=== PATIENT | male | born 1960 ===

== ENCOUNTER 2017-02-18 20:13 | Inpatient (IN) | payer MEDICAID, OTHER ==
[2017-02-18] MEDS ORDERED: Nitroglycerin 2% Ointment Foilpak UD TOP STA (22:05)
[2017-02-18 22:09] LABS: BASO # 0.1 K/uL (0.0-0.2); BASO % 0.7 % (0.0-2.0); EOS # 0.1 K/uL (0.0-0.7); EOS % 0.9 % (0.0-4.0); HEMOGLOBIN 16.8 g/dL (12.0-18.0); LYMPH # 1.4 K/uL (1.0-4.3); LYMPH % 11.1 % (20.0-40.0); MEAN CELL VOLUME 99.2 fl (80.0-94.0); MEAN CORPUSCULAR HEMOGLOBIN 33.2 pg (27.0-31.0); MEAN CORPUSCULAR HGB CONC 33.5 g/dL (33.0-37.0); MEAN PLATELET VOLUME 8.4 fl (7.2-11.7); MONO # 1.1 K/uL (0.0-0.8); MONO % 8.4 % (0.0-10.0); NEUT # 10.1 K/uL (1.8-7.0); NEUT % 78.9 % (50.0-75.0); NRBC % 0.6 % (0.0-0.0); RBC 5.05 Mil/uL (4.40-5.90); RED CELL DISTRIBUTION WIDTH 13.6 % (11.5-14.5); WHITE BLOOD COUNT 12.8 K/uL (4.8-10.8)
--- NOTE | 2017-02-18 22:09 | ED PDOC ---
HPI: General Adult Time Seen by Provider: 02/18/17 20:39 Chief Complaint (Nursing): Headache Chief Complaint (Provider): Chest pain, shortness of breath, and headache History Per: Patient History/Exam Limitations: no limitations Current Symptoms Are (Timing): Still Present Additional Complaint(s): 56 year old male with a past medical history of hypertension (noncompliance, states he only takes medications sometimes every other day) who presents to the emergency department with a complaint of a chest pain and shortness of breath x1 week. States he has been having increased shortness of breath especially when he is sleeping and having to get up multiple times during the night to catch his breath. Associated with bilateral leg swelling gradually over the last week with substernal chest pain that is pressure like and intermittently with a headache and productive cough with brownish sputum. Denies fever or focal weakness. PMD: Dr. Markham ([place], [place]) Past Medical History Reviewed: Historical Data, Nursing Documentation, Vital Signs Vital Signs: Last Vital Signs Temp 98.5 F 02/21/17 09:00 Pulse 85 02/21/17 09:00 Resp 18 02/21/17 09:00 BP 133/87 02/21/17 09:00 Pulse Ox 95 02/21/17 09:00 - Medical History PMH: HTN, Kidney Stones - Surgical History Surgical History: No Surg Hx - Family History Family History: States: CAD, Other Other Family History: cardiac disease father at 40 (massive heart attack) - Social History Current smoker - smoking cessation education provided: Yes (Half a pack a day) Alcohol: Occasional Drugs: Denies - Home Medications Home Medications: Ambulatory Orders Medication Instructions Recorded hydroCHLOROthiazide [Hydrodiuril] 25 mg PO DAILY #30 tab 07/28/15 - Allergies Allergies/Adverse Reactions: Allergies Allergy/AdvReac Type Severity Reaction Status Date / Time No Known Allergies Allergy Verified 02/18/17 20:17 Review of Systems ROS Statement: Except As Marked, All Systems Reviewed And Found Negative (As per HPI, otherwise negative) Constitutional: Negative for: Fever Cardiovascular: Positive for: Chest Pain (substernal) Respiratory: Positive for: Cough, Shortness of Breath, Sputum (brownish) Musculoskeletal: Positive for: Leg Pain (swelling bialterally) Neurological: Positive for: Headache. Negative for: Weakness (focal) Physical Exam - Reviewed Nursing Documentation Reviewed: Yes Vital Signs Reviewed: Yes - Physical Exam Appears: Positive for: Non-toxic, In Acute Distress Head Exam: Positive for: ATRAUMATIC, NORMOCEPHALIC Skin: Positive for: Warm, Dry Eye Exam: Positive for: EOMI, PERRL ENT: Negative for: Pharyngeal Erythema, Tonsillar Exudate Neck: Positive for: Painless ROM, Supple Cardiovascular/Chest: Positive for: Regular Rate, Rhythm, Edema. Negative for: Murmur Respiratory: Positive for: Normal Breath Sounds, Respiratory Distress. Negative for: Accessory Muscle Use Gastrointestinal/Abdominal: Positive for: Soft. Negative for: Tenderness Back: Positive for: Normal Inspection. Negative for: Decreased ROM Extremity: Positive for: Pedal Edema, Swelling. Negative for: Calf Tenderness Lymphatic: Negative for: Adenopathy Neurologic/Psych: Positive for: Alert. Negative for: Motor/Sensory Deficits - Laboratory Results Result Diagrams: 02/21/17 04:45 02/21/17 04:45 - ECG O2 Sat by Pulse Oximetry: 96 (RA) Pulse Ox Interpretation: Normal Medical Decision Making Medical Decision Making: Time: 2102 Initial impression: Shortness of breath and leg edema differential new onset congestive heart failure (CHF), acute coronary syndrome (ACS), fluid overload, renal failure, pneumonia Initial plan: --Labs and chemistry ordered --Chest x-ray --Rapid Strep --Reevaluation Time: 2204 --WBC: 12.8 (High) --ALT: 84 (High) --NT-Pro-B Natriuret Pep: 1490 (High) --Strep: Negative Time: 2207 --Chest x-ray read by me shows vascular congestion and no effusion Time: 2247 --Admit to hospital routine: on observation in telemetry for CHF and chest pain under the care of Dr. Leonel Carranza MD Scribe Attestation: Documented by Amber García, acting as a scribe for Krystal Allen MD. Provider Scribe Attestation: All medical record entries made by the Scribe were at my direction and personally dictated by me. I have reviewed the chart and agree that the record accurately reflects my personal performance of the history, physical exam, medical decision making, and the department course for this patient. I have also personally directed, reviewed, and agree with the discharge instructions and disposition. Disposition - Clinical Impression Clinical Impression: CHF (congestive heart failure), Chest pain Discussed With Dr.: Leonel Carranza Doctor Will See Patient In The: Hospital Counseled Patient/Family Regarding: Studies Performed, Diagnosis - Disposition Disposition Time: 21:00 Condition: FAIR - Pt Status Changed To: Hospital Disposition Of: Observation - POA Present On Arrival: None
[2017-02-18 22:19] LABS: ALB/GLOB RATIO 1.2 (1.0-2.1); ALBUMIN 3.9 g/dL (3.5-5.0); ALT/SGPT 81 U/L (21-72); AST/SGOT 36 U/L (17-59); BLOOD UREA NITROGEN 15 mg/dl (9-20); CALCIUM 9.6 mg/dL (8.4-10.2); GFR AFRICAN-AMERICAN > 60; GFR NON-AFRICAN AMERICAN > 60; MAGNESIUM 1.7 MG/DL (1.6-2.3)
[2017-02-18 22:30] LABS: B-TYPE NATRIURETIC PEPTIDE 1490 pg/ml (0-900)
[2017-02-18 22:32] LABS: INR 1.1 (0.9-1.2); PARTIAL THROMBOPLASTIN TIME 35.1 Seconds (25.6-37.1); PROTHROMBIN TIME 11.8 Seconds (9.8-13.1)
[2017-02-19] MEDS ORDERED: Potassium Chloride 20 mEq ER Tab PO ONE (09:09)
[2017-02-19] MEDS: Potassium Chloride 20 mEq ER Tab PO SCH (09:11)
--- NOTE | 2017-02-19 10:49 | RAD ---
HISTORY: chest pain sob COMPARISON: No prior. TECHNIQUE: Chest PA and lateral FINDINGS: LUNGS: Coarse interstitial lung markings blend with central pulmonary venous suspect congestion PLEURA: No significant pleural effusion identified. No pneumothorax apparent. CARDIOVASCULAR: Cardiomegaly OSSEOUS STRUCTURES: No significant abnormalities. VISUALIZED UPPER ABDOMEN: Normal. OTHER FINDINGS: None. IMPRESSION: Cardiomegaly with central pulmonary venous congestion Concomitant interstitial lung disease possible
--- NOTE | 2017-02-19 10:53 | CARD ---
APPROVED REPORT EKG Measurement Heart [id number] SC [id number] <Conclusion> Sinus tachycardia with premature supraventricular complexes Biatrial enlargement Abnormal ECG
--- NOTE | 2017-02-19 10:53 | CARD ---
APPROVED REPORT EKG Measurement Heart [id number] NC [id number] <Conclusion> Sinus tachycardia with premature atrial complexes Biatrial enlargement Abnormal ECG
--- NOTE | 2017-02-19 11:06 | US ---
PROCEDURE: Bilateral lower extremity venous duplex Doppler. HISTORY: CHF COMPARISON: None available. TECHNIQUE: Bilateral common femoral, superficial femoral, popliteal and posterior tibial veins were evaluated. Flow was assessed with color Doppler, compressibility, assessment of phasic flow and augmentation response. FINDINGS: COMMON FEMORAL VEIN: Right CFV: Normal direction of flow, compressibility and augmentation response. Left CFV: Normal direction of flow, compressibility and augmentation response. SUPERFICIAL FEMORAL VEIN: Right SFV: Normal direction of flow, compressibility and augmentation response. Left SFV: Normal direction of flow, compressibility and augmentation response. POPLITEAL VEIN: Right Popliteal: Normal direction of flow, compressibility and augmentation response. Left Popliteal: Normal direction of flow, compressibility and augmentation response. POSTERIOR TIBIAL VEIN: Right PTV:Normal direction of flow, compressibility and augmentation response. Left PTV: Normal direction of flow, compressibility and augmentation response. OTHER FINDINGS: None. IMPRESSION: No evidence of deep venous thrombosis.
--- NOTE | 2017-02-19 11:38 | CARD ---
APPROVED REPORT EXAM: Two-dimensional and M-mode echocardiogram with Doppler and color Doppler. Other Information Quality : FairRhythm : INDICATION Abnormal EKG/Arrhythmia Congestive Heart Failure 2D DIMENSIONS IVSd1.52 (0.7-1.1cm)LVDd6.22 (3.9-5.9cm) PWd1.21 (0.7-1.1cm)IVSs1.55 (0.8-1.2cm) LVDs5.27 (2.5-4.0cm)FS (%) 15.4 % PWs1.54 (0.8-1.2cm) M-Mode DIMENSIONS Left Atrium (MM)5.32 (2.5-4.0cm)IVSd1.48 (0.7-1.1cm) Aortic Root3.93 (2.2-3.7cm)LVDd6.71 (4.0-5.6cm) Aortic Cusp Exc.1.52 (1.5-2.0cm)PWd1.60 (0.7-1.1cm) IVSs1.14 cmFS (%) 9 % LVDs6.12 (2.0-3.8cm)PWs1.48 cm Mitral Valve MV E Hbmkxfnp26.7cm/sMV E Peak Gr.23mmHgMV DECEL [id number] MV A Yntsqjfg24.1cm/sMV UMQ57fyA/A ratio1.5 MVA (PHT)4.95cm2 TDI Lateral E' Peak V6.11cm/sE/Lateral E'8.6E/Medial E'0.0 Tricuspid Valve TR Peak Hobnfkjh230em/sRAP GAVXYNJC7dyTaFO Peak Gr.12mmHg [id number] LEFT VENTRICLE The Left Ventricle is moderately dilated on the 2D study. There is mild concentric left ventricular hypertrophy on the 2D study. Left ventricle systolic function is severely impaired. The Ejection Fraction is - 20-25%. The wall motion appears to vary somewhat from on view to another. But, there is generalized severe LV hypokinesia. Transmitral Doppler flow pattern is Grade II-pseudonormal filling dynamics. No left ventricle thrombus noted on this study. There is no ventricular septal defect visualized. There is no left ventricular aneurysm. There is no mass noted in the left ventricle. RIGHT VENTRICLE The right ventricle is normal size. There is normal right ventricular wall thickness. The right ventricular systolic function is normal. ATRIA The left atrium is mildly dilated. There is no thrombus suspected in the left atrium. The right atrium size is normal. The interatrial septum is intact with no evidence for an atrial septal defect. AORTIC VALVE The aortic valve is normal in structure. No aortic regurgitation is present. There is no aortic valvular stenosis. MITRAL VALVE The mitral valve is normal in structure. There is no evidence of mitral valve prolapse. There is no mitral valve stenosis. Mitral regurgitation is mild. TRICUSPID VALVE The tricuspid valve is normal in structure. There is trace tricuspid regurgitation. Right ventricular systolic pressure is estimated at 22 mmHg. There is no tricuspid valve prolapse or vegetation. There is no tricuspid valve stenosis. PULMONIC VALVE The pulmonic valve is not well visualized. There is no pulmonic valvular regurgitation. GREAT VESSELS The aortic root is normal in size. The IVC was not well visualized. PERICARDIAL EFFUSION The pericardium appears normal. There is no pleural effusion. <Conclusion> The Left Ventricle is moderately dilated on the 2D study. There is mild concentric left ventricular hypertrophy. Left ventricle systolic function is severely impaired. The Ejection Fraction is - 20-25%. The left atrium is mildly dilated. The mitral, aortic and tricuspid valves are normal. There is mild mitral regurgitation and trace tricuspid regurgitation.
--- NOTE | 2017-02-19 14:23 | CP.PCM.HP ---
<Adilene Berg - Last Filed: 02/19/17 14:57> History of Present Illness - History of Present Illness History of Present Illness: 56 yr old M presented to Ed with complaint of worsening SOB at rest, pressure like chest pain and bilateral lower extremity swelling for the past week. PMHx includes hypertension. Patient reports non-adherence to BP meds. He has been waking up SOB from his sleep and has not been able to sleep well for the past week, he has always slept propped up with 4 pillows, but has noticed he gets SOB after walking half a block on flat pavement when prior he could walk many blocks without getting SOB. This is the first time he experiences swelling of his legs. He has not seen his PMD in 2 yrs. 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 Medications: Hydrochlorothiazide 25mg PO QD Allergies: NKDA Present on Admission - Present on Admission Any Indicators Present on Admission: No History of DVT/PE: No History of Uncontrolled Diabetes: No Urinary Catheter: No History Surgical Site Infection Following: None Review of Systems - Review of Systems All systems: reviewed and no additional remarkable complaints except (for what is mentioned in the HPI) - Constitutional Constitutional: absent: Anorexia, Chills - EENT Eyes: absent: Blurred Vision, Change in Vision Ears: absent: Disequilibrium, Dizziness Nose/Mouth/Throat: absent: Nasal Congestion, Nasal Discharge - Cardiovascular Cardiovascular: Chest Pain, Dyspnea (at rest), Dyspnea on Exertion, Leg Edema ( bilateral), Orthopnea, Pedal Edema (bilateral). absent: Chest Pain with Activity, Rapid Heart Rate - Respiratory Respiratory: Dyspnea on Exertion, Chest Congestion (with brown sputum production x 1 month). absent: Hemoptysis - Gastrointestinal Gastrointestinal: absent: Diarrhea, Nausea, Vomiting - Genitourinary Genitourinary: absent: Difficulty Urinating, Dysuria - Musculoskeletal Musculoskeletal: absent: Arthralgias - Neurological Neurological: absent: Dizziness, Weakness - Psychiatric Psychiatric: absent: Anxiety, Homicidal Ideation, Suicidal Ideation - Endocrine Endocrine: absent: Polydipsia, Polyphagia, Polyuria - Hematologic/Lymphatic Hematologic: absent: Easy Bleeding, Easy Bruising Past Patient History - Past Social History Alcohol: Occasional Drugs: Denies - CARDIAC Hx Hypertension: Yes - RENAL Hx Kidney Stones: Yes - PSYCHIATRIC Hx Substance Use: No - SURGICAL HISTORY Hx Surgeries: Yes Other/Comment: lithotripsy x3 - ANESTHESIA Hx Anesthesia: Yes Hx Anesthesia Reactions: No Meds Allergies/Adverse Reactions: Allergies Allergy/AdvReac Type Severity Reaction Status Date / Time No Known Allergies Allergy Verified 02/18/17 20:17 Physical Exam - Constitutional Appears: Other (SOB, uncomfortable) - Head Exam Head Exam: ATRAUMATIC, NORMOCEPHALIC - Eye Exam Eye Exam: EOMI, PERRL - ENT Exam ENT Exam: Mucous Membranes Moist - Neck Exam Neck exam: Positive for: Full Rom. Negative for: Lymphadenopathy - Respiratory Exam Respiratory Exam: Decreased Breath Sounds (in bilateral lower lobes), NORMAL BREATHING PATTERN (on 2L supplemental O2 via nasal cannula) - Cardiovascular Exam Cardiovascular Exam: REGULAR RHYTHM, +S1, +S2 - GI/Abdominal Exam GI & Abdominal Exam: Normal Bowel Sounds, Soft (obese). absent: Tenderness - Extremities Exam Extremities exam: Positive for: full ROM, pedal edema (bilateral pitting edema , very dry plantar skin) - Neurological Exam Neurological exam: Alert, CN II-XII Intact, Oriented x3 - Psychiatric Exam Psychiatric exam: Normal Affect, Normal Mood - Skin Skin Exam: Dry, Intact, Normal Color, Warm Results - Vital Signs Recent Vital Signs: Last Vital Signs Temp 97.7 F 02/19/17 13:50 Pulse 78 02/19/17 13:50 Resp 18 02/19/17 13:50 BP 141/81 02/19/17 13:50 Pulse Ox 96 02/19/17 13:50 - Labs Result Diagrams: 02/18/17 22:05 02/18/17 22:05 Labs: Laboratory Results - last 24 hr 02/18/17 02/18/17 02/18/17 21:03 21:47 22:05 WBC RBC Hgb Hct MCV MCH MCHC RDW Plt Count MPV Neut % (Auto) Lymph % (Auto) [place] % (Auto) Eos % (Auto) Baso % (Auto) Neut # Lymph # [place] # Eos # Baso # PT INR APTT Sodium 138 Potassium 4.0 Chloride 102 Carbon Dioxide 28 Anion Gap 12 BUN 15 Creatinine 0.8 Est GFR ( Amer) > 60 Est GFR (Non-Af Amer) > 60 POC Glucose (mg/dL) 102 Random Glucose 97 Calcium 9.6 Phosphorus 2.9 Magnesium 1.7 Total Bilirubin 0.9 AST 36 ALT 81 H D Alkaline Phosphatase 125 Troponin I 0.0920 NT-Pro-B Natriuret Pep 1490 H Total Protein 7.1 Albumin 3.9 Globulin 3.2 Albumin/Globulin Ratio 1.2 TSH 3rd Generation 0.97 Grp A Beta Strep Ag Blood Type B NEGATIVE Antibody Screen Negative BBK History Checked No verified bt 02/18/17 02/18/17 02/18/17 22:05 22:05 22:05 WBC 12.8 H D RBC 5.05 Hgb 16.8 Hct 50.1 MCV 99.2 H MCH 33.2 H MCHC 33.5 RDW 13.6 Plt Count 225 MPV 8.4 Neut % (Auto) 78.9 H Lymph % (Auto) 11.1 L [place] % (Auto) 8.4 Eos % (Auto) 0.9 Baso % (Auto) 0.7 Neut # 10.1 H Lymph # 1.4 Freestone # 1.1 H Eos # 0.1 Baso # 0.1 PT 11.8 INR 1.1 APTT 35.1 Sodium Potassium Chloride Carbon Dioxide Anion Gap BUN Creatinine Est GFR ( Amer) Est GFR (Non-Af Amer) POC Glucose (mg/dL) Random Glucose Calcium Phosphorus Magnesium Total Bilirubin AST ALT Alkaline Phosphatase Troponin I NT-Pro-B Natriuret Pep Total Protein Albumin Globulin Albumin/Globulin Ratio TSH 3rd Generation Grp A Beta Strep Ag Negative Blood Type Antibody Screen BBK History Checked 02/19/17 02/19/17 06:15 13:07 WBC RBC Hgb Hct MCV MCH MCHC RDW Plt Count MPV Neut % (Auto) Lymph % (Auto) Freestone % (Auto) Eos % (Auto) Baso % (Auto) Neut # Lymph # Fre[place] # Eos # Baso # PT INR APTT Sodium Potassium Chloride Carbon Dioxide Anion Gap BUN Creatinine Est GFR ( Amer) Est GFR (Non-Af Amer) POC Glucose (mg/dL) Random Glucose Calcium Phosphorus Magnesium Total Bilirubin AST ALT Alkaline Phosphatase Troponin I 0.0910 0.0750 NT-Pro-B Natriuret Pep Total Protein Albumin Globulin Albumin/Globulin Ratio TSH 3rd Generation Grp A Beta Strep Ag Blood Type Antibody Screen BBK History Checked Assessment & Plan - Assessment and Plan (Free Text) Assessment: 56 yr old M admitted for new onset systolic CHF with uncontrolled HTN. Patient is SOB while on supplemental O2 via nasal cannula with bilateral lower extremity edema. 1. Acute Systolic CHF -new onset -Echo: severely impaired systolic function with LVEF 20-25%, severe LV hypokinesia -EKG: biatrial enlargement, sinus tachy -CXR: cardiomegaly with central pulmonary venous congestion, possible concomitant interstitial lung disease -b/l LE duplex: no evidence of DVT -cardiology consult appreciated-will follow recommendations: lasix 40mg IV BID, Ramipril 2.5mg PO BID -Admit to telemetry -daily weight, ins and outs 2. Hypertension -chronic, uncontrolled -Ramipril 2.5 mg PO QD -heart healthy diet 3. DVT prophylaxis -Lovenox 40mg SC QD - Date & Time Date: 02/19/17 Time: 12:00 <Leonel Carranza - Last Filed: 02/23/17 18:29> Results - Vital Signs Recent Vital Signs: Last Vital Signs Temp 98.5 F 02/23/17 16:04 Pulse 75 02/23/17 16:04 Resp 14 02/23/17 16:04 BP 102/67 02/23/17 16:04 Pulse Ox 96 02/23/17 16:04 - Labs Result Diagrams: 02/21/17 04:45 02/23/17 05:40 Labs: Laboratory Results - last 24 hr 02/23/17 05:40 Sodium 137 Potassium 5.0 Chloride 98 Carbon Dioxide 32 H Anion Gap 12 BUN 23 H Creatinine 1.2 Est GFR ( Amer) > 60 Est GFR (Non-Af Amer) > 60 Random Glucose 233 H Calcium 9.9 Magnesium 2.1 NT-Pro-B Natriuret Pep 327 Assessment & Plan - Assessment and Plan (Free Text) Plan: I was present during evaluation and discussed with Dr Berg re:plans of care and mgt Leonel Carranza M.D.
[2017-02-19] MEDS ORDERED: Pneumococcal 23-Valent Vaccine IM ONE (14:59)
[2017-02-19] MEDS: Enoxaparin 40 mg Syringe SC SCH (16:01)
[2017-02-19 17:57] VITALS: BMI 30.3
[2017-02-19 19:06] LABS: SQUAMOUS EPITHIAL < 1 /hpf (0-5); URINE BILIRUBIN NEGATIVE (NEGATIVE); URINE BLOOD NEGATIVE (NEGATIVE); URINE CLARITY CLEAR (Clear); URINE COLOR STRAW (YELLOW); URINE GLUCOSE (UA) NEG (Normal); URINE LEUKOCYTE ESTERASE NEG Leu/uL (Negative); URINE NITRATE NEGATIVE (NEGATIVE); URINE PROTEIN NEGATIVE (NEGATIVE); URINE UROBILINOGEN 0.2-1.0 mg/dL (0.2-1.0)
[2017-02-19 19:21] LABS: BARBITURATES, UR NEGATIVE (NEGATIVE); BENZODIAZEPINES, UR NEGATIVE (NEGATIVE); OPIATES, UR NEGATIVE (NEGATIVE); PHENCYCLIDINE, UR NEGATIVE (NEGATIVE)
--- NOTE | 2017-02-19 19:44 | CP.PCM.CON ---
History of Present Illness - History of Present Illness History of Present Illness: 56 Y/O ADMITTED WITH NEW ONSET CHF. PT STATES HE HAS BEEN EXPERIENCING DENSON, ORTHOPNEA, PND AND ALIA FOR SEVERAL WEEKS. THIS IS THE FIRST TIME HE HAS HAD SUCH SYMPTOMS. HE DENIES A HX OF HEART DISEASE, ETOH USE/ABUSE, ARRYTHMIAS, CP , SYNCOPE. Review of Systems - Constitutional Constitutional: As Per HPI. absent: Anorexia, Chills, Daytime Sleepiness, Excessive Sweating, Fatigue, Fever, Frequent Falls, Headache, Increased Appetite , Lethargy, Malaise, Night Sweats, Snoring, Sleep Apnea, Weight Gain, Weight Loss, Weakness, Other - EENT Eyes: As Per HPI. absent: Blind Spots, Blurred Vision, Change in Vision, Decreased Night Vision, Diplopia, Discharge, Dry Eye, Exophthalmos, Floaters, Irritation, Itchy Eyes, Loss of Peripheral Vision, Pain, Photophobia, Requires Corrective Lenses, Sees Flashes, Spots in Vision, Tunnel Vision, Other Visual Disturbances, Loss of Vision, Other Ears: As Per HPI. absent: Decreased Hearing, Ear Discharge, Ear Pain, Tinnitus , Abnormal Hearing, Disequilibrium, Dizziness, Other Nose/Mouth/Throat: As Per HPI. absent: Epistaxis, Nasal Congestion, Nasal Discharge, Nasal Obstruction, Nasal Trauma, Nose Pain, Post Nasal Drip, Sinus Pain, Sinus Pressure, Bleeding Gums, Change in Voice, Dental Pain, Dry Mouth, Dysphagia, Halitosis, Hoarsness, Lip Swelling, Mouth Lesions, Mouth Pain, Odynophagia, Sore Throat, Throat Swelling, Tongue Swelling, Facial Pain, Neck Pain, Neck Mass, Other - Cardiovascular Cardiovascular: As Per HPI, Dyspnea, Dyspnea on Exertion, Edema, Leg Edema, Paroxysmal Nocturnal Dyspnea. absent: Acrocyanosis, Chest Pain, Chest Pain at Rest, Chest Pain with Activity, Claudication, Diaphoresis, Irregular Heart Rhythm, Pain Radiating to Arm/Neck/Jaw, Leg Ulcers, Lightheadedness, Orthopnea, Palpitations, Pedal Edema, Radiating Pain, Rapid Heart Rate, Slow Heart Rate, Syncope, Other - Respiratory Respiratory: As Per HPI. absent: Cough, Dyspnea, Hemoptysis, Dyspnea on Exertion, Wheezing, Snoring, Stridor, Pain on Inspiration, Chest Congestion, Excessive Mucous Production, Change in Mucous Color, Pain with Coughing, Other - Gastrointestinal Gastrointestinal: As Per HPI. absent: Abdominal Pain, Belching, Bloating, Change in Bowel Habits, Change in Stool Character, Coffee Ground Emesis, Constipation, Cramping, Diarrhea, Dyspepsia, Dysphagia, Early Satiety, Excessive Flatus, Fecal Incontinence, Heartburn, Hematemesis, Hematochezia, Loose Stools, Melena, Nausea, Odynophagia, Temesmus, Vomiting, Other - Genitourinary Genitourinary: As Per HPI. absent: Change in Urinary Stream, Difficulty Urinating, Dysuria, Flank Pain, Hematuria, Pyuria, Nocturia, Urinary Incontinence, Urinary Frequency, Urinary Hesitance, Urinary Urgency, Voiding Freq/Small Amts, Freq UTI, Hx Renal/Bladder Calculi, Hx /Renal Surgery, Bladder Distension, Other - Reproductive: Male Reproductive:Male: As Per HPI - Musculoskeletal Musculoskeletal: As Per HPI. absent: Abnormal Gait, Arthralgias, Atrophy, Back Pain, Deformity, Joint Swelling, Limited Range of Motion, Loss of Height, Muscle Cramps, Muscle Weakness, Myalgias, Neck Pain, Numbness, Radiating Pain into Limb, Stiffness, Tingling, Other - Integumentary Integumentary: As Per HPI. absent: Acne, Alopecia, Bleeding Lesions, Change in Hair, Change in Nails, Change in Pigmentation, Changing Lesions, Dry Skin, Erythema, Furuncle, Hirsutism, Lesions, New Lesions, Non-Healing Lesions, Photosensitivity, Pruritus, Rash, Skin Pain, Skin Ulcer, Sores, Striae, Swelling , Unusual Bruising, Wounds, Jaundice, Other - Neurological Neurological: As Per HPI. absent: Abnormal Gait, Abnormal Hearing, Abnormal Movements, Abnormal Speech, Behavioral Changes, Burning Sensations, Confusion, Convulsions, Disequilibrium, Dizziness, Numbness, Focal Weakness, Frequent Falls , Headaches, Lack of Coordination, Loss of Vision, Memory Loss, Paresthesias, Radicular Pain, Restless Legs, Sensory Deficit, Syncope, Tingling, Tremor, Vertigo, Weakness, Other Visual Disturbances, Other - Psychiatric Psychiatric: As Per HPI. absent: Abnormal Sleep Pattern, Anhedonia, Anxiety, Auditory Hallucinations, Behavioral Changes, Change in Appetite, Change in Libido, Confusion, Depression, Difficulty Concentrating, Hallucinations, Homicidal Ideation, Hopelessness, Irritability, Memory Loss, Mood Swings, Panic Attacks, Paranoia, Suicidal Ideation, Visual Hallucinations, Tactile Hallucinations, Other - Endocrine Endocrine: As Per HPI. absent: Change in Body Appearance, Change in Libido, Cold Intolorance, Deepening of Voice, Excessive Sweating, Fatigue, Flushing, Heat Intolorance, Increase in Ring/Shoe/Hat Size, Palpitations, Polydipsia, Polyphagia, Polyuria, Other - Hematologic/Lymphatic Hematologic: As Per HPI. absent: Easy Bleeding, Easy Bruising, Lymphadenopathy , Other Past Patient History - Infectious Disease Hx of Infectious Diseases: None - Tetanus Immunizations Tetanus Immunization: Unknown - Past Medical History & Family History Past Medical History?: Yes - Past Social History Smoking Status: Former Smoker Alcohol: Occasional Drugs: Denies - CARDIAC Hx Hypertension: Yes - RENAL Hx Kidney Stones: Yes - MUSCULOSKELETAL/RHEUMATOLOGICAL Hx Falls: No - PSYCHIATRIC Hx Substance Use: No - SURGICAL HISTORY Hx Surgeries: Yes Other/Comment: lithotripsy x3 - ANESTHESIA Hx Anesthesia: Yes Hx Anesthesia Reactions: No Meds Allergies/Adverse Reactions: Allergies Allergy/AdvReac Type Severity Reaction Status Date / Time No Known Allergies Allergy Verified 02/18/17 20:17 - Medications Medications: Current Medications Enoxaparin Sodium (Lovenox) 40 mg SC DAILY [facility] PRN Reason: Protocol Last Admin: 02/19/17 16:01 Dose: 40 mg Furosemide (Lasix) 40 mg IVP BID [facility] Last Admin: 02/19/17 16:02 Dose: 40 mg Oxymetazoline HCl (Nasal Decongestant 15 Ml) 1 spr NS Q12 PRN PRN Reason: Nasal congestion Last Admin: 02/19/17 16:02 Dose: 1 spr Potassium Chloride (K-Dur 20 Meq Er Tab) 20 meq PO DAILY [facility] Last Admin: 02/19/17 09:11 Dose: 20 meq Ramipril (Altace) 2.5 mg PO BID [facility] Last Admin: 02/19/17 16:01 Dose: 2.5 mg Physical Exam - Constitutional Appears: Non-toxic - Head Exam Head Exam: ATRAUMATIC, NORMAL INSPECTION, NORMOCEPHALIC - Eye Exam Eye Exam: EOMI, Normal appearance, PERRL Pupil Exam: NORMAL ACCOMODATION, PERRL - ENT Exam ENT Exam: Mucous Membranes Moist, Normal Exam - Neck Exam Neck exam: Positive for: Normal Inspection - Respiratory Exam Respiratory Exam: Decreased Breath Sounds, NORMAL BREATHING PATTERN - Cardiovascular Exam Cardiovascular Exam: Tachycardia, REGULAR RHYTHM, +S1, +S2, Systolic Murmur - GI/Abdominal Exam GI & Abdominal Exam: Normal Bowel Sounds, Soft. absent: Tenderness - Rectal Exam Rectal Exam: Deferred - Extremities Exam Extremities exam: Positive for: pedal edema - Back Exam Back exam: NORMAL INSPECTION - Neurological Exam Neurological exam: Alert, CN II-XII Intact, Normal Gait, Oriented x3, Reflexes Normal - Psychiatric Exam Psychiatric exam: Normal Affect, Normal Mood - Skin Skin Exam: Dry, Intact, Normal Color, Warm Results - Vital Signs Recent Vital Signs: Last Vital Signs Temp 99.2 F 02/19/17 19:10 Pulse 61 02/19/17 19:10 Resp 20 02/19/17 19:10 BP 119/80 02/19/17 19:10 Pulse Ox 99 02/19/17 19:10 - Labs Result Diagrams: 02/18/17 22:05 02/18/17 22:05 Labs: Laboratory Results - last 24 hr 02/18/17 02/18/17 02/18/17 21:03 21:47 22:05 WBC RBC Hgb Hct MCV MCH MCHC RDW Plt Count MPV Neut % (Auto) Lymph % (Auto) [place] % (Auto) Eos % (Auto) Baso % (Auto) Neut # Lymph # [place] # Eos # Baso # PT INR APTT Sodium 138 Potassium 4.0 Chloride 102 Carbon Dioxide 28 Anion Gap 12 BUN 15 Creatinine 0.8 Est GFR ( Amer) > 60 Est GFR (Non-Af Amer) > 60 POC Glucose (mg/dL) 102 Random Glucose 97 Calcium 9.6 Phosphorus 2.9 Magnesium 1.7 Total Bilirubin 0.9 AST 36 ALT 81 H D Alkaline Phosphatase 125 Troponin I 0.0920 NT-Pro-B Natriuret Pep 1490 H Total Protein 7.1 Albumin 3.9 Globulin 3.2 Albumin/Globulin Ratio 1.2 TSH 3rd Generation 0.97 Urine Color Urine Clarity Urine pH Ur Specific [place] Urine Protein Urine Glucose (UA) Urine Ketones Urine Blood Urine Nitrate Urine Bilirubin Urine Urobilinogen Ur Leukocyte Esterase Urine RBC (Auto) Urine Microscopic WBC Ur Squamous Epith Cells Urine Opiates Screen Urine Methadone Screen Ur Barbiturates Screen Ur Phencyclidine Scrn Ur Amphetamines Screen U Benzodiazepines Scrn U Oth Cocaine Metabols U Cannabinoids Screen Grp A Beta Strep Ag Blood Type B NEGATIVE Antibody Screen Negative BBK History Checked No verified bt 02/18/17 02/18/17 02/18/17 22:05 22:05 22:05 WBC 12.8 H D RBC 5.05 Hgb 16.8 Hct 50.1 MCV 99.2 H MCH 33.2 H MCHC 33.5 RDW 13.6 Plt Count 225 MPV 8.4 Neut % (Auto) 78.9 H Lymph % (Auto) 11.1 L [place] % (Auto) 8.4 Eos % (Auto) 0.9 Baso % (Auto) 0.7 Neut # 10.1 H Lymph # 1.4 [place] # 1.1 H Eos # 0.1 Baso # 0.1 PT 11.8 INR 1.1 APTT 35.1 Sodium Potassium Chloride Carbon Dioxide Anion Gap BUN Creatinine Est GFR ( Amer) Est GFR (Non-Af Amer) POC Glucose (mg/dL) Random Glucose Calcium Phosphorus Magnesium Total Bilirubin AST ALT Alkaline Phosphatase Troponin I NT-Pro-B Natriuret Pep Total Protein Albumin Globulin Albumin/Globulin Ratio TSH 3rd Generation Urine Color Urine Clarity Urine pH Ur Specific [place] Urine Protein Urine Glucose (UA) Urine Ketones Urine Blood Urine Nitrate Urine Bilirubin Urine Urobilinogen Ur Leukocyte Esterase Urine RBC (Auto) Urine Microscopic WBC Ur Squamous Epith Cells Urine Opiates Screen Urine Methadone Screen Ur Barbiturates Screen Ur Phencyclidine Scrn Ur Amphetamines Screen U Benzodiazepines Scrn U Oth Cocaine Metabols U Cannabinoids Screen Grp A Beta Strep Ag Negative Blood Type Antibody Screen BBK History Checked 02/19/17 02/19/17 02/19/17 06:15 13:07 18:44 WBC RBC Hgb Hct MCV MCH MCHC RDW Plt Count MPV Neut % (Auto) Lymph % (Auto) [place] % (Auto) Eos % (Auto) Baso % (Auto) Neut # Lymph # [place] # Eos # Baso # PT INR APTT Sodium Potassium Chloride Carbon Dioxide Anion Gap BUN Creatinine Est GFR ( Amer) Est GFR (Non-Af Amer) POC Glucose (mg/dL) Random Glucose Calcium Phosphorus Magnesium Total Bilirubin AST ALT Alkaline Phosphatase Troponin I 0.0910 0.0750 NT-Pro-B Natriuret Pep Total Protein Albumin Globulin Albumin/Globulin Ratio TSH 3rd Generation Urine Color Urine Clarity Urine pH Ur Specific [place] Urine Protein Urine Glucose (UA) Urine Ketones Urine Blood Urine Nitrate Urine Bilirubin Urine Urobilinogen Ur Leukocyte Esterase Urine RBC (Auto) Urine Microscopic WBC Ur Squamous Epith Cells Urine Opiates Screen Negative Urine Methadone Screen Negative Ur Barbiturates Screen Negative Ur Phencyclidine Scrn Negative Ur Amphetamines Screen Negative U Benzodiazepines Scrn Negative U Oth Cocaine Metabols Negative U Cannabinoids Screen Negative Grp A Beta Strep Ag Blood Type Antibody Screen BBK History Checked 02/19/17 18:44 WBC RBC Hgb Hct MCV MCH MCHC RDW Plt Count MPV Neut % (Auto) Lymph % (Auto) [place] % (Auto) Eos % (Auto) Baso % (Auto) Neut # Lymph # [place] # Eos # Baso # PT INR APTT Sodium Potassium Chloride Carbon Dioxide Anion Gap BUN Creatinine Est GFR ( Amer) Est GFR (Non-Af Amer) POC Glucose (mg/dL) Random Glucose Calcium Phosphorus Magnesium Total Bilirubin AST ALT Alkaline Phosphatase Troponin I NT-Pro-B Natriuret Pep Total Protein Albumin Globulin Albumin/Globulin Ratio TSH 3rd Generation Urine Color Straw Urine Clarity Clear Urine pH 6.0 Ur Specific [place] 1.006 Urine Protein Negative Urine Glucose (UA) Neg Urine Ketones Negative Urine Blood Negative Urine Nitrate Negative Urine Bilirubin Negative Urine Urobilinogen 0.2-1.0 Ur Leukocyte Esterase Neg Urine RBC (Auto) < 1 Urine Microscopic WBC < 1 Ur Squamous Epith Cells < 1 Urine Opiates Screen Urine Methadone Screen Ur Barbiturates Screen Ur Phencyclidine Scrn Ur Amphetamines Screen U Benzodiazepines Scrn U Oth Cocaine Metabols U Cannabinoids Screen Grp A Beta Strep Ag Blood Type Antibody Screen BBK History Checked Assessment & Plan (1) CHF (congestive heart failure) Status: Acute (2) High blood pressure Status: Acute (3) PAC (premature atrial contraction) Status: Acute (4) Tachycardia Status: Acute - Assessment and Plan (Free Text) Plan: I REVIEWED THE ECHO IMAGES. PTS EF IS 15-20%. LV IS DILATED. EVIDENCE OF COMBINED SYS/CLARK ACUTE CHF. WILL INCREASE DIURETICS AND ACEI'S. ONCE CHF COMPENSATED CAN START COREG. WOULD PREFER TO MONITOR MAP AND TARGET MAP OF 60- 65. WILL NEED CARDIAC CATH TO EVAL FOR CAD. MONITOR BNP, LYTES AND CR. TELE MONITOR. 65 MIN TOTAL CARE TIME.
[2017-02-19 20:52] LABS: HEPATITIS B SURFACE AG NEGATIVE (NEGATIVE)
[2017-02-19 21:10] LABS: HEPATITIS C ANTIBODY Negative (NEGATIVE)
--- NOTE | 2017-02-19 22:32 | PCM.RRT ---
I.Reason for ACCOUNTS PAYABLE SUPERVISOR - A) Acute Change in Patient: (Select all that apply): Staff member or family is worried about patient Subjective: 56 y/o man admitted for SOB and new onset systolic CHF had ACCOUNTS PAYABLE SUPERVISOR called at 22:30 for spontaneous atrial fibrillation seen on predictive maintenance technician. Patient denies chest pain but does complain of feeling hot, bilateral lower extremity edema and SOB since admission. 12 lead EKG was done bedside and showed afib. Patient has no other complaints. Patient denies past history of arrhythmias or lung problems. - Neurological Status (Select all that apply): Alert, Responsive, Oriented, Verbal, Follows Commands - Respiratory Oxygen Delivery Method: Nasal Cannula @L/min (2L) - Constitutional Appears: Non-toxic, No Acute Distress - Head Head Exam: ATRAUMATIC, NORMAL INSPECTION, NORMOCEPHALIC - Eyes Eye Exam: Normal appearance - Respiratory Exam Respiratory Exam: Clear to Ausculation Bilateral, NORMAL BREATHING PATTERN - Cardiovascular Exam Cardiovascular Exam: Tachycardia, Irregular Rhythm - Neurological Exam Neurological Exam: Alert, Awake, Oriented x3 - Extremities Exam Extremities Exam: Full ROM, Pedal Edema. absent: Calf Tenderness, Tenderness Plan - Assessment of Findings&Treatment Plan 56 y/o man admitted for SOB and new onset systolic CHF had ACCOUNTS PAYABLE SUPERVISOR called at 22:30 for spontaneous atrial fibrillation seen on predictive maintenance technician. EKG: afib lasix 40 mg IVP patient remains calm consider diltiazem or metoprolol if afib persists patient to remain in TELE with continuous cardiac monitoring
[2017-02-20 06:15] LABS: MEAN CELL VOLUME 100.2 fl (80.0-94.0); MEAN CORPUSCULAR HEMOGLOBIN 33.3 pg (27.0-31.0); MEAN CORPUSCULAR HGB CONC 33.3 g/dL (33.0-37.0); RBC 5.1 Mil/uL (4.40-5.90); RED CELL DISTRIBUTION WIDTH 13.6 % (11.5-14.5); WHITE BLOOD COUNT 8.2 K/uL (4.8-10.8)
[2017-02-20 06:30] LABS: B-TYPE NATRIURETIC PEPTIDE 492 pg/ml (0-900)
[2017-02-20 06:33] LABS: ALB/GLOB RATIO 1.1 (1.0-2.1); ALBUMIN 3.3 g/dL (3.5-5.0); ALT/SGPT 53 U/L (21-72); AST/SGOT 19 U/L (17-59); BLOOD UREA NITROGEN 23 mg/dl (9-20); CALCIUM 9.1 mg/dL (8.4-10.2); GFR AFRICAN-AMERICAN > 60; GFR NON-AFRICAN AMERICAN > 60; MAGNESIUM 1.9 MG/DL (1.6-2.3)
--- NOTE | 2017-02-20 08:41 | CARD ---
APPROVED REPORT EKG Measurement Heart [id number] MI [id number] <Conclusion> Sinus rhythm with premature atrial complexes Possible Left atrial enlargement Nonspecific T wave abnormality Prolonged QT Abnormal ECG
[2017-02-20] MEDS ORDERED: Enoxaparin 40 mg Syringe SC SCH (09:00)
--- NOTE | 2017-02-20 09:02 | CP.PCM.PN ---
<Adilene Berg - Last Filed: 02/20/17 14:02> Subjective - Date & Time of Evaluation Date of Evaluation: 02/20/17 Time of Evaluation: 10:30 - Subjective Subjective: Patient seen and examined at bedside with attending-Dr. Carranza. Reports he has noticed some improvement in swelling of his legs. Had FOX RAISER last night for acute episode of a-fib which has resolved s/p additional dose of lasix IV. Denies chest pain, palpitations, SOB, weakness or dizziness. Patient is aware cardiology will send him for further studies to evaluate his acute heart failure. Objective - Vital Signs/Intake and Output Vital Signs (last 24 hours): Temp Pulse Resp BP Pulse Ox 98.0 F 90 18 112/76 98 02/20/17 08:45 02/20/17 08:45 02/20/17 08:45 02/20/17 05:00 02/20/17 08:45 Intake and Output: 02/20/17 02/20/17 06:59 18:59 Intake Total 900 Output Total 1100 Balance -200 - Medications Medications: Current Medications Enoxaparin Sodium (Lovenox) 40 mg SC DAILY [facility] PRN Reason: Protocol Last Admin: 02/19/17 16:01 Dose: 40 mg Furosemide (Lasix) 40 mg IVP BID [facility] Last Admin: 02/19/17 16:02 Dose: 40 mg Oxymetazoline HCl (Nasal Decongestant 15 Ml) 1 spr NS Q12 PRN PRN Reason: Nasal congestion Last Admin: 02/19/17 16:02 Dose: 1 spr Potassium Chloride (K-Dur 20 Meq Er Tab) 20 meq PO DAILY [facility] Last Admin: 02/19/17 09:11 Dose: 20 meq Ramipril (Altace) 2.5 mg PO BID [facility] Last Admin: 02/19/17 16:01 Dose: 2.5 mg - Labs Labs: 02/20/17 05:00 02/20/17 05:00 PT 11.8 Seconds (9.8-13.1) 02/18/17 22:05 INR 1.1 (0.9-1.2) 02/18/17 22:05 APTT 35.1 Seconds (25.6-37.1) 02/18/17 22:05 - Constitutional Appears: Non-toxic - Head Exam Head Exam: ATRAUMATIC, NORMOCEPHALIC - Eye Exam Eye Exam: EOMI - ENT Exam ENT Exam: Mucous Membranes Moist - Neck Exam Neck Exam: Full ROM - Respiratory Exam Respiratory Exam: NORMAL BREATHING PATTERN - Cardiovascular Exam Cardiovascular Exam: REGULAR RHYTHM, +S1, +S2 - GI/Abdominal Exam GI & Abdominal Exam: Soft (obese), Normal Bowel Sounds - Extremities Exam Extremities Exam: Full ROM, Pedal Edema (trace) - Neurological Exam Neurological Exam: Alert, Awake, CN II-XII Intact, Oriented x3 - Psychiatric Exam Psychiatric exam: Normal Affect, Normal Mood - Skin Skin Exam: Dry, Warm Assessment and Plan - Assessment and Plan (Free Text) Assessment: 56 yr old M admitted for new onset systolic CHF with uncontrolled HTN. Patient is SOB while on supplemental O2 via nasal cannula with bilateral lower extremity edema. 1. Acute Systolic CHF -new onset -Echo: severely impaired systolic function with LVEF 20-25%, severe LV hypokinesia -EKG: biatrial enlargement, sinus tachy -CXR: cardiomegaly with central pulmonary venous congestion, possible concomitant interstitial lung disease -b/l LE duplex: no evidence of DVT -cardiology consult appreciated-will follow recommendations: combined sys/bright CHF with LVEF 15-20%, lasix 40mg IV BID, Ramipril 2.5mg PO BID; pt will need cardiac cath, increase in ACEi and diuretics, once CHF compensates-start Coreg, f/u BNP,lytes and Cr -Admit to telemetry -daily weight, ins and outs 2. Hypertension -chronic, uncontrolled -Ramipril 2.5 mg PO QD -heart healthy diet 3. DVT prophylaxis -Lovenox 40mg SC QD <Leonel Carranza - Last Filed: 02/23/17 18:49> Objective - Vital Signs/Intake and Output Vital Signs (last 24 hours): Temp Pulse Resp BP Pulse Ox 98.5 F 75 14 102/67 96 02/23/17 16:04 02/23/17 16:04 02/23/17 16:04 02/23/17 16:04 02/23/17 16:04 - Medications Medications: Current Medications Apixaban (Eliquis) 5 mg PO BID [facility] PRN Reason: Protocol Last Admin: 02/23/17 17:32 Dose: 5 mg Carvedilol (Coreg) 6.25 mg PO Q12 [facility] Last Admin: 02/23/17 09:37 Dose: 6.25 mg Furosemide (Lasix) 40 mg IVP DAILY [facility] Last Admin: 02/23/17 09:38 Dose: 40 mg Lactulose (Enulose) 20 gm PO DAILY [facility] PRN Reason: Constipation Last Admin: 02/23/17 09:38 Dose: 20 gm Lidocaine HCl (Xylocaine 2% (Uro-Jet)) 1 ea TOP Q12 [facility] Oxymetazoline HCl (Nasal Decongestant 15 Ml) 1 spr NS Q12 PRN PRN Reason: Nasal congestion Last Admin: 02/20/17 16:30 Dose: 1 spr Ramipril (Altace) 5 mg PO DAILY [facility] Last Admin: 02/23/17 09:37 Dose: 5 mg - Labs Labs: 02/21/17 04:45 02/23/17 05:40 PT 11.6 Seconds (9.8-13.1) 02/21/17 04:45 INR 1.0 (0.9-1.2) 02/21/17 04:45 APTT 31.4 Seconds (25.6-37.1) 02/21/17 04:45 Assessment and Plan - Assessment and Plan (Free Text) Plan: I was present during evaluation and discussed with Dr Berg re plans of care and mgt. Leonel Carranza M.D.
[2017-02-20] MEDS: Potassium Chloride 20 mEq ER Tab PO SCH (09:20)
[2017-02-20] MEDS: Enoxaparin 40 mg Syringe SC SCH (09:22)
[2017-02-20] MEDS ORDERED: Magnesium Sulfate 2 gm/50 ml 2 GM/50 ML BAG IVPB ONE (14:34)
--- NOTE | 2017-02-20 14:50 | CP.PCM.PN ---
Subjective - Date & Time of Evaluation Date of Evaluation: 02/20/17 Time of Evaluation: 16:00 - Subjective Subjective: 2 HR RUN OF AFIB OVERNIGHT. Objective - Vital Signs/Intake and Output Vital Signs (last 24 hours): Temp Pulse Resp BP Pulse Ox 98.4 F 86 20 109/69 97 02/20/17 13:00 02/20/17 13:00 02/20/17 13:00 02/20/17 13:00 02/20/17 13:00 Intake and Output: 02/20/17 02/20/17 06:59 18:59 Intake Total 900 Output Total 1100 Balance -200 - Medications Medications: Current Medications Carvedilol (Coreg) 3.125 mg PO Q12 [facility] Enoxaparin Sodium (Lovenox) 40 mg SC DAILY [facility] PRN Reason: Protocol Last Admin: 02/20/17 09:22 Dose: 40 mg Furosemide (Lasix) 40 mg IVP DAILY [facility] Magnesium Sulfate (Magnesium Sulfate 2 Gm/50 Ml Water) 2 gm in 50 mls @ 50 mls/ hr IVPB ONCE ONE PRN Reason: 2 GM/HR Stop: 02/20/17 15:33 Oxymetazoline HCl (Nasal Decongestant 15 Ml) 1 spr NS Q12 PRN PRN Reason: Nasal congestion Last Admin: 02/19/17 16:02 Dose: 1 spr Potassium Chloride (Potassium Chloride Oral Soln) 40 meq PO Q4 [facility] Stop: 02/20/17 21:01 Ramipril (Altace) 2.5 mg PO BID [facility] Last Admin: 02/20/17 09:20 Dose: Not Given - Labs Labs: 02/20/17 05:00 02/20/17 05:00 PT 11.8 Seconds (9.8-13.1) 02/18/17 22:05 INR 1.1 (0.9-1.2) 02/18/17 22:05 APTT 35.1 Seconds (25.6-37.1) 02/18/17 22:05 Assessment and Plan (1) CHF (congestive heart failure) Status: Acute (2) High blood pressure Status: Acute (3) PAC (premature atrial contraction) Status: Acute (4) Tachycardia Status: Acute (5) Paroxysmal A-fib Status: Acute - Assessment and Plan (Free Text) Plan: BNP DECREASED, CHF IMPROVING. PLAN FOR CATH AT 11 AM TOMORROW. NPO POST MN, NO LOVENOX IN AM. MEDS CHANGED TO LASIX 40 IV DAILY, COREG ADDED, MAG AND KCL REPLEATED. ASA 81MG ADDED. CONTINUE TELE MONITOR GIVEN SHORT RUN OF AFIB. D/W MANUFACTURING BAKER COVERING PT.
[2017-02-20] MEDS: Potassium Chloride 20 mEq/15 ml LIQ UD PO SCH ×2 (16:19→22:16)
[2017-02-21 05:54] LABS: HEMOGLOBIN 16.5 g/dL (12.0-18.0); MEAN CELL VOLUME 100.5 fl (80.0-94.0); MEAN CORPUSCULAR HEMOGLOBIN 32.9 pg (27.0-31.0); MEAN CORPUSCULAR HGB CONC 32.8 g/dL (33.0-37.0); RBC 5.02 Mil/uL (4.40-5.90); RED CELL DISTRIBUTION WIDTH 13.5 % (11.5-14.5); WHITE BLOOD COUNT 7.8 K/uL (4.8-10.8)
[2017-02-21 06:14] LABS: B-TYPE NATRIURETIC PEPTIDE 200 pg/ml (0-900)
[2017-02-21 06:27] LABS: ALBUMIN 3.3 g/dL (3.5-5.0); ALT/SGPT 42 U/L (21-72); AST/SGOT 17 U/L (17-59); BLOOD UREA NITROGEN 20 mg/dl (9-20); CALCIUM 9.4 mg/dL (8.4-10.2); GFR AFRICAN-AMERICAN > 60; GFR NON-AFRICAN AMERICAN > 60; MAGNESIUM 2.2 MG/DL (1.6-2.3)
[2017-02-21 06:46] LABS: PARTIAL THROMBOPLASTIN TIME 31.4 Seconds (25.6-37.1); PROTHROMBIN TIME 11.6 Seconds (9.8-13.1)
--- NOTE | 2017-02-21 08:34 | CARD ---
APPROVED REPORT EKG Measurement Heart [id number] [place] [id number] [id number] <Conclusion> Normal sinus rhythm Biatrial enlargement Nonspecific intraventricular conduction delay Nonspecific T wave abnormality Abnormal ECG
--- NOTE | 2017-02-21 11:38 | CP.PCM.PN ---
<Adilene Berg - Last Filed: 02/21/17 11:33> Subjective - Date & Time of Evaluation Date of Evaluation: 02/21/17 Time of Evaluation: 08:00 - Subjective Subjective: Patient seen and examined at bedside with attending-Dr. Carranza. Awake and alert. Patient is NPO for cardiac cath today. Denies chest pain, SOB, nausea, vomiting or diarrhea. Lower extremity swelling has resolved. Objective - Vital Signs/Intake and Output Vital Signs (last 24 hours): Temp Pulse Resp BP Pulse Ox 98.5 F 85 18 133/87 95 02/21/17 09:00 02/21/17 09:00 02/21/17 09:00 02/21/17 09:00 02/21/17 09:00 Intake and Output: 02/21/17 02/21/17 06:59 18:59 Intake Total 400 Output Total 600 Balance -200 - Medications Medications: Current Medications Carvedilol (Coreg) 3.125 mg PO Q12 [facility] Last Admin: 02/21/17 08:05 Dose: 3.125 mg Enoxaparin Sodium (Lovenox) 40 mg SC DAILY [facility] PRN Reason: Protocol Last Admin: 02/20/17 09:22 Dose: 40 mg Furosemide (Lasix) 40 mg IVP DAILY [facility] Last Admin: 02/21/17 08:08 Dose: Not Given Oxymetazoline HCl (Nasal Decongestant 15 Ml) 1 spr NS Q12 PRN PRN Reason: Nasal congestion Last Admin: 02/20/17 16:30 Dose: 1 spr Ramipril (Altace) 2.5 mg PO BID [facility] Last Admin: 02/21/17 08:06 Dose: Not Given - Labs Labs: 02/21/17 04:45 02/21/17 04:45 PT 11.6 Seconds (9.8-13.1) 02/21/17 04:45 INR 1.0 (0.9-1.2) 02/21/17 04:45 APTT 31.4 Seconds (25.6-37.1) 02/21/17 04:45 - Constitutional Appears: No Acute Distress - Head Exam Head Exam: ATRAUMATIC, NORMOCEPHALIC - Eye Exam Eye Exam: EOMI - ENT Exam ENT Exam: Mucous Membranes Moist - Neck Exam Neck Exam: Full ROM - Respiratory Exam Respiratory Exam: NORMAL BREATHING PATTERN - Cardiovascular Exam Cardiovascular Exam: REGULAR RHYTHM, +S1, +S2 - GI/Abdominal Exam GI & Abdominal Exam: Soft, Normal Bowel Sounds. absent: Tenderness - Extremities Exam Extremities Exam: Full ROM. absent: Pedal Edema - Neurological Exam Neurological Exam: Alert, Awake, CN II-XII Intact, Oriented x3 - Psychiatric Exam Psychiatric exam: Normal Affect, Normal Mood - Skin Skin Exam: Dry, Intact, Warm Assessment and Plan - Assessment and Plan (Free Text) Assessment: 56 yr old M admitted for new onset systolic CHF with uncontrolled HTN. Patients ' SOB has improved. NPO today for cardiac catheterization. CHF medication has been adjusted by cardiology. Patient is medically stable to go for cath. 1. Acute Systolic CHF -new onset -Echo: severely impaired systolic function with LVEF 20-25%, severe LV hypokinesia -EKG: biatrial enlargement, sinus tachy -CXR: cardiomegaly with central pulmonary venous congestion, possible concomitant interstitial lung disease -b/l LE duplex: no evidence of DVT -cardiology consult appreciated-will follow recommendations: combined sys/bright CHF with LVEF 15-20%, lasix 40mg IV QD, Ramipril 2.5mg PO BID;Coreg added, aspirin 81 mg PO QD. Cardiac cath today. -laboratory monitor on telemetry -daily weight, ins and outs 2. Hypertension -chronic, uncontrolled -Ramipril 2.5 mg PO QD -heart healthy diet 3. DVT prophylaxis -Lovenox 40mg SC QD held today for cardiac cath <Leonel Carranza - Last Filed: 02/23/17 18:54> Objective - Vital Signs/Intake and Output Vital Signs (last 24 hours): Temp Pulse Resp BP Pulse Ox 98.5 F 75 14 102/67 96 02/23/17 16:04 02/23/17 16:04 02/23/17 16:04 02/23/17 16:04 02/23/17 16:04 - Medications Medications: Current Medications Apixaban (Eliquis) 5 mg PO BID [facility] PRN Reason: Protocol Last Admin: 02/23/17 17:32 Dose: 5 mg Carvedilol (Coreg) 6.25 mg PO Q12 [facility] Last Admin: 02/23/17 09:37 Dose: 6.25 mg Furosemide (Lasix) 40 mg IVP DAILY [facility] Last Admin: 02/23/17 09:38 Dose: 40 mg Lactulose (Enulose) 20 gm PO DAILY PRN PRN Reason: Constipation Last Admin: 02/23/17 09:38 Dose: 20 gm Lidocaine HCl (Xylocaine 2% (Uro-Jet)) 1 ea TOP Q12 [facility] Oxymetazoline HCl (Nasal Decongestant 15 Ml) 1 spr NS Q12 PRN PRN Reason: Nasal congestion Last Admin: 02/20/17 16:30 Dose: 1 spr Ramipril (Altace) 5 mg PO DAILY [facility] Last Admin: 02/23/17 09:37 Dose: 5 mg - Labs Labs: 02/21/17 04:45 02/23/17 05:40 PT 11.6 Seconds (9.8-13.1) 02/21/17 04:45 INR 1.0 (0.9-1.2) 02/21/17 04:45 APTT 31.4 Seconds (25.6-37.1) 02/21/17 04:45 Assessment and Plan - Assessment and Plan (Free Text) Plan: I was present during evaluation and discussed with Dr tavera re plans of care and mgt. leonel Flores M.D.
--- NOTE | 2017-02-21 11:55 | IP.NPCORE ---
Heart Failure Core Measure - Heart Failure Ejection Fraction: Less Than 40 % MARIA TERESA Inhibitor Prescribed: Yes Beta-Dejon Prescribed: Carvedilol
--- NOTE | 2017-02-22 18:13 | CP.PCM.PN ---
Subjective - Date & Time of Evaluation Date of Evaluation: 02/22/17 Time of Evaluation: 17:00 - Subjective Subjective: PT WO DENSON, ORTHOPNEA, PND. EDEMA IMPROVING. WAS SEEN FOR LIFE VEST. HAD RUN OF AFLUTTER/AFIB ON TELE YESTERDAY. WAS SEEN BY EP. Objective - Vital Signs/Intake and Output Vital Signs (last 24 hours): Temp Pulse Resp BP Pulse Ox 97.7 F 74 18 143/89 97 02/22/17 17:00 02/22/17 17:00 02/22/17 17:00 02/22/17 17:00 02/22/17 17:00 Intake and Output: 02/22/17 02/22/17 06:59 18:59 Intake Total 500 740 Balance 500 740 - Medications Medications: Current Medications Carvedilol (Coreg) 6.25 mg PO Q12 [facility] Enoxaparin Sodium (Lovenox) 40 mg SC DAILY [facility] PRN Reason: Protocol Last Admin: 02/20/17 09:22 Dose: 40 mg Furosemide (Lasix) 40 mg IVP DAILY [facility] Last Admin: 02/22/17 08:30 Dose: 40 mg Lactulose (Enulose) 20 gm PO DAILY PRN PRN Reason: Constipation Last Admin: 02/21/17 23:00 Dose: 20 gm Oxymetazoline HCl (Nasal Decongestant 15 Ml) 1 spr NS Q12 PRN PRN Reason: Nasal congestion Last Admin: 02/20/17 16:30 Dose: 1 spr Ramipril (Altace) 5 mg PO DAILY [facility] - Labs Labs: 02/21/17 04:45 02/21/17 04:45 PT 11.6 Seconds (9.8-13.1) 02/21/17 04:45 INR 1.0 (0.9-1.2) 02/21/17 04:45 APTT 31.4 Seconds (25.6-37.1) 02/21/17 04:45 Assessment and Plan (1) CHF (congestive heart failure) Status: Acute (2) High blood pressure Status: Acute (3) PAC (premature atrial contraction) Status: Acute (4) Tachycardia Status: Acute (5) Paroxysmal A-fib Status: Acute (6) NICM (nonischemic cardiomyopathy) Status: Acute (7) Flutter-fibrillation Status: Acute - Assessment and Plan (Free Text) Plan: HAD LONG DISCUSSION WITH PT AND FAMILY ABOUT RISK OF SCD GIVEN DCM, ABOUT PAF AND RISK OF ANTICOAGULATION OR LACK THEREOF. PT AGREES TO LIFEVEST AND ANTICOAGULATION LONG HIS INSURANCE COVERAGE IS ACTIVE. HIS BP AND HR REMAIN MILDLY ELEVATED. I INCREASED COREG AND RAMIPRIL. RECALLED LIFE VEST FOR FITTING. STARTED PT ON ELIQUIS FOR PAF AFTER DISCUSSING WITH DR VALLEJO. PT IS AWARE HE MUST BE CONSISTENT WITH MEDICATIONS AND FOLLOWUP. HE SHOULD F/U IN CLINIC WITH DR SUE AND HAVE RE-EVAL OF EF IN 3 MONTHS (FOR AICD EVAL). RECOMMEND ACCOUNTING CLERK EVAL FOR MEDICATIONS AND INSURANCE ISSUES. I STRESSED THE NEED FOR D/C ANY AND ALL ALCOHOL USE. 80 MIN TOTAL CARE TIME.
--- NOTE | 2017-02-22 20:16 | CON ---
DATE: REFERRING PHYSICIAN: Nirav James DO REASON FOR EVALUATION: 1. Dilated cardiomyopathy. 2. Hypertension. 3. Atrial fibrillation. HISTORY OF PRESENT ILLNESS: Mr. Jesus Iglesias is a 56-year-old male with past medical history of hypertension, kidney stones, who presents to the emergency department at [facility] on 02/18/2017 with complaints of worsening shortness of breath at rest, pressure like chest pain, bilateral lower extremity swelling for 1 week prior to admission. Patient has had poor adherence to blood pressure diet. He had worsening PND and 4-pillow orthopnea prior to presenting. He had difficulty walking short distances as well. He was admitted to telemetry, seen in consultation by Dr. Nirav James, underwent structural heart disease workup which include the 2D echocardiogram and left heart catheterization, results are consistent with nonischemic cardiomyopathy, details are to follow. He has no "history of heart disease" and is surprised by all the recent developments. PAST MEDICAL HISTORY: As mentioned previously, hypertension, kidney stones, kidney infection as a child. PAST SURGICAL HISTORY: No surgical history in the past. FAMILY HISTORY: Patient has mother with hypertension, father at 41 years old of myocardial infarction as per the patient. SOCIAL HISTORY: Patient has a [id number] history of smoking, social EtOH consumption. 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 MEDICATIONS: Previously was hydrochlorothiazide 25 mg p.o. daily. ALLERGIES: NO KNOWN DRUG ALLERGIES. REVIEW OF SYSTEMS: Pertinent cardiac symptoms as per that in the history of present illness. He denies any anorexia, chills, weight gain, weight loss. No visual disturbances. No dysequilibrium or dizziness. No nasal congestion or nasal discharge. The aforementioned intermittent chest discomfort, dyspnea, lower extremity edema, paroxysmal nocturnal dyspnea, orthopnea, and intermittent palpitations. Respirations, dyspnea on exertion. Patient did have chest congestion with intermittent brown sputum production. No nausea, vomiting, diarrhea, constipation, urinary complaints. No arthralgias. Patient has had intermitted dizziness, weakness, but no syncope. No psychosocial stressors. No polydipsia, polyphagia, polyuria. No easy bleeding or bruising is noted. Echocardiogram which was done on 02/19/2017 shows left ventricle moderately dilated, mild concentric left ventricular hypertrophy, ejection fraction between 20% and 25%, wall motion appears to vary from various views, severe hypokinesia, pseudonormal filling pattern is also noted. Right ventricle is of normal size. Left atrium appears mildly dilated. Aortic valve appears normal. Mitral valve without evidence of prolapse. Mild mitral regurgitation is noted. No tricuspid stenosis, prolapse, vegetation. Electrocardiogram done on 02/20/2017 shows normal sinus rhythm at 65 beats per minute, left atrial abnormality, NE interval is160 milliseconds, normal axis across the limb leads. There is borderline R wave progression in the anterior precordial leads, nonspecific ST-T wave changes are noted at the lateral leads. QT and QTc are 436 and 453 respectively. QRS duration is 120 milliseconds qualifying for nonspecific intraventricular conduction delay. On review of telemetry, patient did have episodes of what appears to be coarse atrial fibrillation with rapid ventricular response on 2 separate occasions, one on 02/19/2017 and one on 02/21/2017, which were self-limiting. PHYSICAL EXAMINATION: VITAL SIGNS: Temperature is 97.6, blood pressure is 113/75, mean arterial pressure is 87, respirations of 18. GENERAL: He is well-developed, well-nourished, mildly obese male, in no acute distress. HEENT: Head is normocephalic and atraumatic. NECK: Supple. No jugular venous distension, no carotid bruits, no hepatojugular reflux. CHEST: Clear to auscultation bilaterally. CARDIOVASCULAR: Regular rate. Distant heart sounds. S1 and S2. No S3 or S4. PMI is difficult to assess. ABDOMEN: Protuberant, soft, nontender, nondistended. Positive bowel sounds. EXTREMITIES: No cyanosis, clubbing or edema. Peripheral pulses are 2+ and symmetric in bilateral upper and lower extremities. LABORATORY DATA: On review of relevant lab work, the patient has a white count of 8.2, H and H of 17.0 and 51.1, and platelets of 216. Potassium is 3.3, previously had been 4.3. BUN and creatinine is 23 and 1.1. ALT, AST is 19 and 53 respectively, alkaline phosphatase is 99, calcium is . BNP on presentation had been mildly elevated at 200. Serial troponin have been negative. Hepatitis panel is negative. HIV is nonreactive. Patient underwent left heart catheterization, said to be nonobstructive. ASSESSMENT AND PLAN: 1. Dilated cardiomyopathy, likely secondary to burned-out hypertensive cardiomyopathy. Ejection fraction is 20% to 25%. Patient is currently on reasonable medical therapy, may up titrate as tolerated. Patient is on Coreg 3.125 mg p.o. q. 12 hours, ramipril 2.5 mg p.o. b.i.d. He is actually being diuresed as well with Lasix 40 mg IV daily. Once his volume status is optimized, patient should be again optimized on outpatient therapy. Would wait a period of 3 months to see if there is improvement of the LV function prior to making a decision on implanting a permanent implantable defibrillator. In the meantime, an option of LifeVest was discussed previously with the patient and Dr. James. I have rediscussed this option with him. He is not interested in a LifeVest at this time and he seems disinterested in the possibility of a defibrillator at this time as well. He states he is going to take medication and observe the diet. 2. Hypertension, which appeared to be relatively controlled at this point. 3. Atrial fibrillation which at this point appears to be paroxysmal. Given his presentation with heart failure and risk factor of hypertension, would suggest anticoagulation. Given his lack of insurance issues, would suggest Coumadin with close followup in the clinic if possible. He appears to be agreeable. NOAC at this point given his insurance situation does not appear to be an option at this time. Once he does have insurance, however, would consider NOAC. 4. Hypokalemia, which should be replaced as diuresis ensues. Thank you for allowing me to participate in the care of your patient. Please do not hesitate to call if you have any questions in regards to his care. Rei Hernandez MD
[2017-02-23 06:44] LABS: BLOOD UREA NITROGEN 23 mg/dl (9-20); CALCIUM 9.9 mg/dL (8.4-10.2); GFR AFRICAN-AMERICAN > 60; GFR NON-AFRICAN AMERICAN > 60; MAGNESIUM 2.1 MG/DL (1.6-2.3)
[2017-02-23 06:48] LABS: B-TYPE NATRIURETIC PEPTIDE 327 pg/ml (0-900)
--- NOTE | 2017-02-23 19:19 | CP.PCM.PN ---
Subjective - Date & Time of Evaluation Date of Evaluation: 02/22/17 Time of Evaluation: 18:30 - Subjective Subjective: Patient has minimal pain on the right femoral area. Has no SOB No chest pain Objective - Vital Signs/Intake and Output Vital Signs (last 24 hours): Temp Pulse Resp BP Pulse Ox 98.5 F 75 14 102/67 96 02/23/17 16:04 02/23/17 16:04 02/23/17 16:04 02/23/17 16:04 02/23/17 16:04 Intake and Output: 02/23/17 02/24/17 18:59 06:59 Intake Total 1300 Output Total 900 Balance 400 - Medications Medications: Current Medications Apixaban (Eliquis) 5 mg PO BID [facility] PRN Reason: Protocol Last Admin: 02/23/17 17:32 Dose: 5 mg Carvedilol (Coreg) 6.25 mg PO Q12 [facility] Last Admin: 02/23/17 09:37 Dose: 6.25 mg Furosemide (Lasix) 40 mg IVP DAILY [facility] Last Admin: 02/23/17 09:38 Dose: 40 mg Lactulose (Enulose) 20 gm PO DAILY PRN PRN Reason: Constipation Last Admin: 02/23/17 09:38 Dose: 20 gm Lidocaine HCl (Xylocaine 2% (Uro-Jet)) 1 ea TOP Q12 [facility] Oxymetazoline HCl (Nasal Decongestant 15 Ml) 1 spr NS Q12 PRN PRN Reason: Nasal congestion Last Admin: 02/20/17 16:30 Dose: 1 spr Ramipril (Altace) 5 mg PO DAILY [facility] Last Admin: 02/23/17 09:37 Dose: 5 mg - Labs Labs: 02/21/17 04:45 02/23/17 05:40 PT 11.6 Seconds (9.8-13.1) 02/21/17 04:45 INR 1.0 (0.9-1.2) 02/21/17 04:45 APTT 31.4 Seconds (25.6-37.1) 02/21/17 04:45 - Head Exam Head Exam: NORMAL INSPECTION - Eye Exam Eye Exam: Normal appearance - ENT Exam ENT Exam: Mucous Membranes Moist - Respiratory Exam Respiratory Exam: Clear to Ausculation Bilateral - Cardiovascular Exam Cardiovascular Exam: REGULAR RHYTHM - GI/Abdominal Exam GI & Abdominal Exam: Normal Bowel Sounds - Neurological Exam Neurological Exam: CN II-XII Intact, Oriented x3 Assessment and Plan (1) CHF (congestive heart failure) Status: Acute (2) Flutter-fibrillation Status: Acute (3) NICM (nonischemic cardiomyopathy) Status: Acute (4) Hypertension Status: Acute - Assessment and Plan (Free Text) Plan: Cont meds IV lasix carvedilol ac cont tx eliquis
--- NOTE | 2017-02-23 19:33 | CP.PCM.PN ---
Subjective - Date & Time of Evaluation Date of Evaluation: 02/23/17 Time of Evaluation: 18:00 - Subjective Subjective: Patient has some dizziness after taking BP meds. Has no chest pain or SOB Noted lower BP. Objective - Vital Signs/Intake and Output Vital Signs (last 24 hours): Temp Pulse Resp BP Pulse Ox 98.5 F 75 14 102/67 96 02/23/17 16:04 02/23/17 16:04 02/23/17 16:04 02/23/17 16:04 02/23/17 16:04 Intake and Output: 02/23/17 02/24/17 18:59 06:59 Intake Total 1300 Output Total 900 Balance 400 - Medications Medications: Current Medications Apixaban (Eliquis) 5 mg PO BID [facility] PRN Reason: Protocol Last Admin: 02/23/17 17:32 Dose: 5 mg Carvedilol (Coreg) 6.25 mg PO Q12 [facility] Last Admin: 02/23/17 09:37 Dose: 6.25 mg Furosemide (Lasix) 40 mg IVP DAILY [facility] Last Admin: 02/23/17 09:38 Dose: 40 mg Lactulose (Enulose) 20 gm PO DAILY PRN PRN Reason: Constipation Last Admin: 02/23/17 09:38 Dose: 20 gm Lidocaine HCl (Xylocaine 2% (Uro-Jet)) 1 ea TOP Q12 [facility] Oxymetazoline HCl (Nasal Decongestant 15 Ml) 1 spr NS Q12 PRN PRN Reason: Nasal congestion Last Admin: 02/20/17 16:30 Dose: 1 spr Ramipril (Altace) 5 mg PO DAILY [facility] Last Admin: 02/23/17 09:37 Dose: 5 mg - Labs Labs: 02/21/17 04:45 02/23/17 05:40 PT 11.6 Seconds (9.8-13.1) 02/21/17 04:45 INR 1.0 (0.9-1.2) 02/21/17 04:45 APTT 31.4 Seconds (25.6-37.1) 02/21/17 04:45 - Head Exam Head Exam: NORMAL INSPECTION - Eye Exam Eye Exam: Normal appearance - ENT Exam ENT Exam: Mucous Membranes Moist - Cardiovascular Exam Cardiovascular Exam: Irregular Rhythm, REGULAR RHYTHM - GI/Abdominal Exam GI & Abdominal Exam: Normal Bowel Sounds - Neurological Exam Neurological Exam: CN II-XII Intact, Oriented x3 Assessment and Plan (1) CHF (congestive heart failure) Status: Acute (2) Flutter-fibrillation Status: Resolved (3) NICM (nonischemic cardiomyopathy) Status: Acute (4) Hypertension Status: Acute (5) Diabetes mellitus type 2 in obese Status: Acute - Assessment and Plan (Free Text) Plan: Cont meds Con ttx start metformin and januvia cont meds. decrease lasix to 20 mg po.
[2017-02-23] MEDS ORDERED: Lidocaine 2% Jelly (Uro-Jet) TOP SCH (21:00)
[2017-02-24 05:16] VITALS: O2SAT 96
[2017-02-24 05:34] LABS: BLOOD UREA NITROGEN 27 mg/dl (9-20); CALCIUM 10.2 mg/dL (8.4-10.2); GFR AFRICAN-AMERICAN > 60; GFR NON-AFRICAN AMERICAN > 60; MAGNESIUM 2.1 MG/DL (1.6-2.3)
[2017-02-24 07:52] VITALS: BP 130/91; PULSE 72; RESP 18; TEMP 98
--- NOTE | 2017-02-24 10:30 | CP.PCM.DIS ---
Provider - Provider Date of Admission: 02/20/17 09:01 Attending physician: Leonel Carranza MD Time Spent in preparation of Discharge (in minutes): 30 Diagnosis - Discharge Diagnosis (1) CHF (congestive heart failure) Status: Acute (2) Flutter-fibrillation Status: Resolved (3) NICM (nonischemic cardiomyopathy) Status: Acute (4) Hypertension Status: Acute (5) Diabetes mellitus type 2 in obese Status: Acute Hospital Course - Lab Results Lab Results: Micro Results 02/18/17 21:47 Blood-Venous Blood Culture - Final NO GROWTH AFTER 5 DAYS 02/18/17 21:47 Blood-Venous Gram Stain - Final TEST NOT PERFORMED 02/18/17 22:05 Throat Group A Strep Throat Culture - Final NO BETA STREP GROUP A ISOLATED. Most Recent Lab Values WBC 7.8 K/uL (4.8-10.8) 02/21/17 04:45 RBC 5.02 Mil/uL (4.40-5.90) 02/21/17 04:45 Hgb 16.5 g/dL (12.0-18.0) 02/21/17 04:45 Hct 50.5 % (35.0-51.0) 02/21/17 04:45 MCV 100.5 fl (80.0-94.0) H 02/21/17 04:45 MCH 32.9 pg (27.0-31.0) H 02/21/17 04:45 MCHC 32.8 g/dL (33.0-37.0) L 02/21/17 04:45 RDW 13.5 % (11.5-14.5) 02/21/17 04:45 Plt Count 220 K/uL (130-400) 02/21/17 04:45 MPV 8.4 fl (7.2-11.7) 02/18/17 22:05 Neut % (Auto) 78.9 % (50.0-75.0) H 02/18/17 22:05 Lymph % (Auto) 11.1 % (20.0-40.0) L 02/18/17 22:05 [place] % (Auto) 8.4 % (0.0-10.0) 02/18/17 22:05 Eos % (Auto) 0.9 % (0.0-4.0) 02/18/17 22:05 Baso % (Auto) 0.7 % (0.0-2.0) 02/18/17 22:05 Neut # 10.1 K/uL (1.8-7.0) H 02/18/17 22:05 Lymph # 1.4 K/uL (1.0-4.3) 02/18/17 22:05 [place] # 1.1 K/uL (0.0-0.8) H 02/18/17 22:05 Eos # 0.1 K/uL (0.0-0.7) 02/18/17 22:05 Baso # 0.1 K/uL (0.0-0.2) 02/18/17 22:05 PT 11.6 Seconds (9.8-13.1) 02/21/17 04:45 INR 1.0 (0.9-1.2) 02/21/17 04:45 APTT 31.4 Seconds (25.6-37.1) 02/21/17 04:45 Sodium 139 mmol/l (132-148) 02/24/17 04:20 Potassium 4.4 MMOL/L (3.6-5.0) 02/24/17 04:20 Chloride 104 mmol/L (98-107) 02/24/17 04:20 Carbon Dioxide 26 mmol/L (22-30) 02/24/17 04:20 Anion Gap 13 (10-20) 02/24/17 04:20 BUN 27 mg/dl (9-20) H 02/24/17 04:20 Creatinine 1.0 mg/dl (0.8-1.5) 02/24/17 04:20 Est GFR ( Amer) > 60 02/24/17 04:20 Est GFR (Non-Af Amer) > 60 02/24/17 04:20 POC Glucose (mg/dL) 102 mg/dL (65-110) 02/18/17 21:03 Random Glucose 221 mg/dL (75-110) H 02/24/17 04:20 Hemoglobin A1c 6.4 % (4.2-6.5) 02/19/17 15:06 Calcium 10.2 mg/dL (8.4-10.2) 02/24/17 04:20 Phosphorus 2.9 mg/dl (2.5-4.5) 02/18/17 22:05 Magnesium 2.1 MG/DL (1.6-2.3) 02/24/17 04:20 Total Bilirubin 0.4 mg/dl (0.2-1.3) 02/21/17 04:45 AST 17 U/L (17-59) 02/21/17 04:45 ALT 42 U/L (21-72) 02/21/17 04:45 Alkaline Phosphatase 100 U/L (38-126) 02/21/17 04:45 Troponin I 0.0750 ng/mL (0.00-0.120) 02/19/17 13:07 NT-Pro-B Natriuret Pep 327 pg/ml (0-900) 02/23/17 05:40 Total Protein 6.6 G/DL (6.3-8.2) 02/21/17 04:45 Albumin 3.3 g/dL (3.5-5.0) L 02/21/17 04:45 Globulin 3.3 gm/dL (2.2-3.9) 02/21/17 04:45 Albumin/Globulin Ratio 1.0 (1.0-2.1) 02/21/17 04:45 TSH 3rd Generation 0.97 mIU/ML (0.46-4.68) 02/18/17 22:05 Urine Color Straw (YELLOW) 02/19/17 18:44 Urine Clarity Clear (Clear) 02/19/17 18:44 Urine pH 6.0 (5.0-8.0) 02/19/17 18:44 Ur Specific [place] 1.006 (1.003-1.030) 02/19/17 18:44 Urine Protein Negative mg/dL (NEGATIVE) 02/19/17 18:44 Urine Glucose (UA) Neg mg/dL (Normal) 02/19/17 18:44 Urine Ketones Negative mg/dL (NEGATIVE) 02/19/17 18:44 Urine Blood Negative (NEGATIVE) 02/19/17 18:44 Urine Nitrate Negative (NEGATIVE) 02/19/17 18:44 Urine Bilirubin Negative (NEGATIVE) 02/19/17 18:44 Urine Urobilinogen 0.2-1.0 mg/dL (0.2-1.0) 02/19/17 18:44 Ur Leukocyte Esterase Neg James/uL (Negative) 02/19/17 18:44 Urine RBC (Auto) < 1 /hpf (0-3) 02/19/17 18:44 Urine Microscopic WBC < 1 /hpf (0-5) 02/19/17 18:44 Ur Squamous Epith Cells < 1 /hpf (0-5) 02/19/17 18:44 Urine Opiates Screen Negative (NEGATIVE) 02/19/17 18:44 Urine Methadone Screen Negative (NEGATIVE) 02/19/17 18:44 Ur Barbiturates Screen Negative (NEGATIVE) 02/19/17 18:44 Ur Phencyclidine Scrn Negative (NEGATIVE) 02/19/17 18:44 Ur Amphetamines Screen Negative (NEGATIVE) 02/19/17 18:44 U Benzodiazepines Scrn Negative (NEGATIVE) 02/19/17 18:44 U Oth Cocaine Metabols Negative (NEGATIVE) 02/19/17 18:44 U Cannabinoids Screen Negative (NEGATIVE) 02/19/17 18:44 Hep Bs Antigen Negative (NEGATIVE) 02/19/17 15:06 Hepatitis C Antibody Negative (NEGATIVE) 02/19/17 15:06 HIV 1&2 Ag/Ab, 4th Gen Nonreactive (Nonreactive) 02/19/17 15:06 Grp A Beta Strep Ag Negative (NEGATIVE) 02/18/17 22:05 Blood Type B NEGATIVE 02/18/17 21:47 Antibody Screen Negative 02/18/17 21:47 BBK History Checked No verified bt 02/18/17 21:47 - Hospital Course Hospital Course: This is a 56 y/o male admitted for new onset of CHF. Noted to have cardiomyopathy with EF of 20 %, and paroxysmal atrial fib. He was also noted o have HTN and DM 2 and started on metformin He had a cardiac cath and was placed on Eliquis 5 mg bid. He was discharged on Coreg rampril and Lasix. Discharge Exam - Head Exam Head Exam: NORMAL INSPECTION - Eye Exam Eye Exam: Normal appearance - Respiratory Exam Respiratory Exam: NORMAL BREATHING PATTERN - Cardiovascular Exam Cardiovascular Exam: REGULAR RHYTHM - GI/Abdominal Exam GI & Abdominal Exam: Normal Bowel Sounds - Neurological Exam Neurological exam: CN II-XII Intact, Oriented x3 - Psychiatric Exam Psychiatric exam: Normal Mood Discharge Plan - Discharge Medications Prescriptions: Ramipril [Altace] 5 mg PO DAILY #30 cap Carvedilol [Coreg] 6.25 mg PO Q12 #60 tab Apixaban [Eliquis] 5 mg PO BID #60 tab MetFORMIN [glucoPHAGE] 1,000 mg PO BIDWM #60 tab SITagliptin [Januvia] 100 mg PO DAILY #30 tab Furosemide [Lasix] 20 mg PO DAILY #30 tab - Follow Up Plan Condition: FAIR Disposition: HOME/ ROUTINE Instructions: Heart Failure (GEN), Chest Pain (GEN) Additional Instructions: advised follow up in 1 week' will give all Rx will continue to monitor will benefit from Entresto .which will be started in the outpatient.
== END 2017-02-24 15:08 | disposition home or self-care (01) | DRG 124 ==
LOC: H.ER 20:13 → H.ERHOLD 22:48 → H.TEL 02-19 14:28 → OBSVTOIN 02-20 09:01
PROVIDERS: ADMIT Family Medicine; ATTEND Family Medicine
PROC: 3E0234Z Introduction of Serum, Toxoid and Vaccine into Muscle, Percutaneous Approach (ICD-10-PCS; principal; 2017-02-19)
PROC: 4A023N7 Measurement of Cardiac Sampling and Pressure, Left Heart, Percutaneous Approach (ICD-10-PCS; 2017-02-21)
PROC: B205YZZ Plain Radiography of Left Heart using Other Contrast (ICD-10-PCS; 2017-02-21)
DX: I11.0 Hypertensive heart disease with heart failure (principal); I42.0 Dilated cardiomyopathy; I48.92 Unspecified atrial flutter; I43 Cardiomyopathy in diseases classified elsewhere; E87.6 Hypokalemia; Z79.01 Long term (current) use of anticoagulants; I48.0 Paroxysmal atrial fibrillation; I50.41 Acute combined systolic (congestive) and diastolic (congestive) heart failure; I25.10 Atherosclerotic heart disease of native coronary artery without angina pectoris; I49.1 Atrial premature depolarization; Z79.899 Other long term (current) drug therapy; Z87.442 Personal history of urinary calculi; Z91.19 Patient's noncompliance with other medical treatment and regimen; R00.0 Tachycardia, unspecified; R26.2 Difficulty in walking, not elsewhere classified; R42 Dizziness and giddiness; E11.9 Type 2 diabetes mellitus without complications; E66.9 Obesity, unspecified; F17.210 Nicotine dependence, cigarettes, uncomplicated; Z68.30 Body mass index [BMI] 30.0-30.9, adult; Z23 Encounter for immunization

== ENCOUNTER 2017-09-20 13:05 | Inpatient (IN) | payer OTHER, SELFPAY ==
[2017-09-20 13:05] VITALS: BMI 30.3
--- NOTE | 2017-09-20 13:30 | ED PDOC ---
HPI: SOB/CHF/COPD Time Seen by Provider: 09/20/17 13:14 Chief Complaint (Nursing): Shortness Of Breath Onset/Duration Of Symptoms: Days (2) Current Symptoms Are (Timing): Intermittent Episodes Severity: Mild Associated Symptoms: denies: Fever, Productive Cough, Leg/Calf Pain, Ankle/Leg Swelling Additional Complaint(s): Orthopnea last night. Normally uses 2-3 pillows to sleep. SOB worse on lying flat. Denies chest pain cough or leg swelling Past Medical History Vital Signs: Last Vital Signs Temp 97 F L 09/20/17 13:15 Pulse 88 09/20/17 13:15 Resp 16 09/20/17 13:50 BP 150/112 H 09/20/17 14:01 Pulse Ox 96 09/20/17 13:29 - Medical History PMH: HTN, Kidney Stones - Family History Family History: States: Unknown Family Hx - Home Medications Home Medications: Ambulatory Orders Medication Instructions Recorded Apixaban [Eliquis] 5 mg PO BID #60 tab 02/24/17 Carvedilol [Coreg] 6.25 mg PO Q12 #60 tab 02/24/17 Furosemide [Lasix] 20 mg PO DAILY #30 tab 02/24/17 MetFORMIN [glucoPHAGE] 1,000 mg PO BIDWM #60 tab 02/24/17 Ramipril [Altace] 5 mg PO DAILY #30 cap 02/24/17 SITagliptin [Januvia] 100 mg PO DAILY #30 tab 02/24/17 - Allergies Allergies/Adverse Reactions: Allergies Allergy/AdvReac Type Severity Reaction Status Date / Time No Known Allergies Allergy Verified 02/18/17 20:17 Review of Systems ROS Statement: Except As Marked, All Systems Reviewed And Found Negative Cardiovascular: Positive for: Orthopnea. Negative for: Chest Pain Respiratory: Positive for: Shortness of Breath Physical Exam - Reviewed Nursing Documentation Reviewed: Yes Vital Signs Reviewed: Yes - Physical Exam Appears: Positive for: Non-toxic, No Acute Distress Head Exam: Positive for: ATRAUMATIC, NORMAL INSPECTION, NORMOCEPHALIC Skin: Positive for: Normal Color, Warm, DRY Eye Exam: Positive for: EOMI, Normal appearance, PERRL ENT: Positive for: Normal ENT Inspection Neck: Positive for: Normal, Painless ROM Cardiovascular/Chest: Positive for: Regular Rate, Rhythm Respiratory: Positive for: CNT, Normal Breath Sounds Gastrointestinal/Abdominal: Positive for: Normal Exam, Soft Back: Positive for: Normal Inspection Extremity: Positive for: Normal ROM Neurologic/Psych: Positive for: Alert, Oriented - Laboratory Results Result Diagrams: 09/20/17 13:48 09/20/17 13:48 - ECG O2 Sat by Pulse Oximetry: 96 Disposition - Clinical Impression Clinical Impression: CHF (congestive heart failure) - Patient ED Disposition Is Patient to be Admitted: Yes - Disposition Disposition Time: 14:55 Condition: FAIR Forms: [facility] (Malawian) - Pt Status Changed To: Hospital Disposition Of: Observation - POA Present On Arrival: None
[2017-09-20 14:00] LABS: BASO # 0.1 K/uL (0.0-0.2); BASO % 0.8 % (0.0-2.0); EOS # 0.1 K/uL (0.0-0.7); EOS % 1.9 % (0.0-4.0); HEMOGLOBIN 16.5 g/dL (12.0-18.0); LYMPH # 1.6 K/uL (1.0-4.3); LYMPH % 23.4 % (20.0-40.0); MEAN CELL VOLUME 97.8 fl (80.0-94.0); MEAN CORPUSCULAR HEMOGLOBIN 34.6 pg (27.0-31.0); MEAN CORPUSCULAR HGB CONC 35.4 g/dL (33.0-37.0); MEAN PLATELET VOLUME 8.2 fl (7.2-11.7); MONO # 0.5 K/uL (0.0-0.8); MONO % 6.7 % (0.0-10.0); NEUT # 4.6 K/uL (1.8-7.0); NEUT % 67.2 % (50.0-75.0); NRBC % 0.1 % (0.0-0.0); RBC 4.78 Mil/uL (4.40-5.90); RED CELL DISTRIBUTION WIDTH 13.5 % (11.5-14.5); WHITE BLOOD COUNT 6.8 K/uL (4.8-10.8)
--- NOTE | 2017-09-20 14:00 | RAD ---
Date of service: 09/20/2017 HISTORY: SOB COMPARISON: Chest radiograph dated 02/18/2017. TECHNIQUE: Chest PA and lateral FINDINGS: LUNGS: Pulmonary vascular congestion. No focal consolidation. PLEURA: No significant pleural effusion identified. No pneumothorax apparent. CARDIOVASCULAR: Atherosclerotic aortic calcifications. Cardiomediastinal silhouette stably enlarged. OSSEOUS STRUCTURES: Unchanged. VISUALIZED UPPER ABDOMEN: Normal. OTHER FINDINGS: None. IMPRESSION: No active disease.
[2017-09-20 14:09] LABS: ALB/GLOB RATIO 1.2 (1.0-2.1); ALBUMIN 3.8 g/dL (3.5-5.0); ALT/SGPT 29 U/L (21-72); AST/SGOT 23 U/L (17-59); BLOOD UREA NITROGEN 19 mg/dl (9-20); CALCIUM 9.4 mg/dL (8.4-10.2); GFR AFRICAN-AMERICAN > 60; GFR NON-AFRICAN AMERICAN > 60
[2017-09-20 14:17] LABS: B-TYPE NATRIURETIC PEPTIDE 1950 pg/ml (0-900)
[2017-09-20] MEDS ORDERED: Nitroglycerin 2% 15 INCH/30 GM TUBE TOP STA (14:53)
[2017-09-20] MEDS ORDERED: Nitroglycerin 2% Ointment Foilpak UD TOP ONE (14:58)
--- NOTE | 2017-09-20 19:55 | CP.PCM.CON ---
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 Review of Systems - Review of Systems Systems not reviewed;Unavailable: Acuity of Condition - Constitutional Constitutional: As Per HPI - EENT Eyes: As Per HPI Ears: As Per HPI Nose/Mouth/Throat: As Per HPI - Cardiovascular Cardiovascular: As Per HPI - Respiratory Respiratory: As Per HPI - Gastrointestinal Gastrointestinal: As Per HPI - Genitourinary Genitourinary: As Per HPI - Reproductive: Male Reproductive:Male: As Per HPI - Musculoskeletal Musculoskeletal: As Per HPI - Integumentary Integumentary: As Per HPI - Neurological Neurological: As Per HPI - Psychiatric Psychiatric: As Per HPI - Endocrine Endocrine: As Per HPI - Hematologic/Lymphatic Hematologic: As Per HPI Past Patient History - Infectious Disease Hx of Infectious Diseases: None - Tetanus Immunizations Tetanus Immunization: Unknown - Past Medical History & Family History Past Medical History?: Yes - Past Social History Smoking Status: sociallly - CARDIAC Hx Hypertension: Yes - PULMONARY Hx Respiratory Disorders: No - NEUROLOGICAL Hx Neurological Disorder: No - HEENT Hx HEENT Problems: No - RENAL Hx Kidney Stones: Yes - ENDOCRINE/METABOLIC Hx Endocrine Disorders: No - HEMATOLOGICAL/ONCOLOGICAL Hx Blood Disorders: No - INTEGUMENTARY Hx Dermatological Problems: No - MUSCULOSKELETAL/RHEUMATOLOGICAL Hx Musculoskeletal Disorders: No Hx Falls: No - GASTROINTESTINAL Hx Gastrointestinal Disorders: No - GENITOURINARY/GYNECOLOGICAL Hx Genitourinary Disorders: No - PSYCHIATRIC Hx Psychophysiologic Disorder: No Hx Substance Use: No - SURGICAL HISTORY Hx Surgeries: Yes Other/Comment: lithotripsy x3 - ANESTHESIA Hx Anesthesia: Yes Hx Anesthesia Reactions: No Meds Home Medications: Home Medication List Medication Instructions Recorded Confirmed Type Aspirin [Aspirin Chewable] 81 mg PO DAILY #30 chew 09/24/17 Rx Atorvastatin [Lipitor] 40 mg PO HS #30 tab 09/24/17 Rx Carvedilol [Coreg] 6.25 mg PO Q12 #60 tab 09/24/17 Rx Furosemide [Lasix] 20 mg PO DAILY #30 tab 09/24/17 Rx Lidocaine 5% [Lidoderm] 1 ea TD DAILY #30 patch 09/24/17 Rx MetFORMIN [glucoPHAGE] 1,000 mg PO BIDWM #60 tab 09/24/17 Rx Ramipril [Altace] 5 mg PO DAILY #30 cap 09/24/17 Rx Rivaroxaban [Xarelto] 20 mg PO DAILY@1700 #30 tab 09/24/17 Rx SITagliptin [Januvia] 100 mg PO DAILY #30 tab 09/24/17 Rx Allergies/Adverse Reactions: Allergies Allergy/AdvReac Type Severity Reaction Status Date / Time No Known Allergies Allergy Verified 02/18/17 20:17 - Medications Medications: Current Medications Furosemide (Lasix) 40 mg IVP BID NATALYA Metoprolol Tartrate (Lopressor) 100 mg PO Q12 NATALYA Ramipril (Altace) 10 mg PO DAILY NATALYA Physical Exam - Constitutional Appears: Well - Head Exam Head Exam: ATRAUMATIC, NORMAL INSPECTION, NORMOCEPHALIC - Eye Exam Eye Exam: EOMI, Normal appearance, PERRL Pupil Exam: NORMAL ACCOMODATION, PERRL - ENT Exam ENT Exam: Mucous Membranes Moist, Normal Exam - Neck Exam Neck exam: Positive for: Normal Inspection - Respiratory Exam Respiratory Exam: Clear to Auscultation Bilateral, NORMAL BREATHING PATTERN - Cardiovascular Exam Cardiovascular Exam: REGULAR RHYTHM, +S1, +S2, Systolic Murmur - GI/Abdominal Exam GI & Abdominal Exam: Normal Bowel Sounds, Soft. absent: Tenderness - Extremities Exam Extremities exam: Positive for: normal inspection - Back Exam Back exam: NORMAL INSPECTION - Neurological Exam Neurological exam: Alert, CN II-XII Intact, Normal Gait, Oriented x3, Reflexes Normal - Psychiatric Exam Psychiatric exam: Normal Affect, Normal Mood - Skin Skin Exam: Dry, Intact, Normal Color, Warm Results - Vital Signs Recent Vital Signs: Last Vital Signs Temp 97 F L 09/20/17 13:15 Pulse 88 09/20/17 13:15 Resp 16 09/20/17 13:50 BP 154/113 H 09/20/17 16:34 Pulse Ox 96 09/20/17 14:55 - Labs Result Diagrams: 09/24/17 04:20 09/24/17 04:20 Labs: Laboratory Results - last 24 hr 09/20/17 09/20/17 13:48 13:48 WBC 6.8 RBC 4.78 Hgb 16.5 Hct 46.8 MCV 97.8 H D MCH 34.6 H MCHC 35.4 RDW 13.5 Plt Count 213 MPV 8.2 Neut % (Auto) 67.2 Lymph % (Auto) 23.4 Edmunds % (Auto) 6.7 Eos % (Auto) 1.9 Baso % (Auto) 0.8 Neut # (Auto) 4.6 Lymph # (Auto) 1.6 Edmunds # (Auto) 0.5 Eos # (Auto) 0.1 Baso # (Auto) 0.1 Sodium 139 Potassium 4.0 Chloride 106 Carbon Dioxide 23 Anion Gap 14 BUN 19 Creatinine 0.8 Est GFR ( Amer) > 60 Est GFR (Non-Af Amer) > 60 Random Glucose 183 H Calcium 9.4 Total Bilirubin 1.1 AST 23 ALT 29 Alkaline Phosphatase 114 NT-Pro-B Natriuret Pep 1950 H Total Protein 6.9 Albumin 3.8 Globulin 3.1 Albumin/Globulin Ratio 1.2 Assessment & Plan (1) Chest pain Assessment and Plan: 50% Lcx disease nuclear stress test Status: Acute (2) Paroxysmal A-fib Assessment and Plan: bb xarelto Status: Acute (3) CHF (congestive heart failure) Assessment and Plan: IV lasix bb, acei Status: Acute (4) Hyperlipidemia associated with type 2 diabetes mellitus Status: Acute (5) Alcohol abuse with intoxication Status: Acute (6) Hypertension Status: Acute (7) NICM (nonischemic cardiomyopathy) Status: Acute
[2017-09-20] MEDS ORDERED: Oxycodone/Acetaminophen 5/325 mg Tab PO ONE (19:59)
--- NOTE | 2017-09-21 00:03 | CP.PCM.PCO ---
Physician Communication Note - Physician Communication Note Physician Communication Note: Called by RN for headache and high BP Assessment/Plan - Assessment and Plan (Free Text) Assessment: A: Called by RN for evaluation and treatment of BP 162/123 and headache. Patient was seen by me, NAD, AAOx3, c/o 08/19 headache, denies any dizziness, SOB , chest pain or palpitations. O: VS reviewd A/P: Patient with high BP and headache - Tylenol 650 PO STAT - Norvasc 5mg PO STAT - Follow up as needed Dr. Levin, PGY-2
[2017-09-21] MEDS ORDERED: Pneumococcal 23-Valent Vaccine IM ONE (06:30)
[2017-09-21] MEDS: Potassium Chloride 20 mEq ER Tab PO SCH (17:31)
[2017-09-22 07:11] LABS: B-TYPE NATRIURETIC PEPTIDE 512 pg/ml (0-900)
[2017-09-22 07:20] LABS: LDL CHOLESTEROL 162 mg/dL (0-129)
[2017-09-22 07:42] LABS: ALB/GLOB RATIO 1.2 (1.0-2.1); ALT/SGPT 28 U/L (21-72); AST/SGOT 27 U/L (17-59); BLOOD UREA NITROGEN 27 mg/dl (9-20); CALCIUM 10.3 mg/dL (8.4-10.2); GFR AFRICAN-AMERICAN > 60; GFR NON-AFRICAN AMERICAN > 60; HDL CHOLESTEROL 39 MG/DL (30-70)
[2017-09-22] MEDS: Potassium Chloride 20 mEq ER Tab PO SCH ×2 (09:00→16:25)
--- NOTE | 2017-09-22 14:25 | CP.PCM.PN ---
Subjective - Date & Time of Evaluation Date of Evaluation: 09/22/17 Time of Evaluation: 14:00 - Subjective Subjective: edema improving with IV lasix still getting DENSON and orthopnea Objective - Vital Signs/Intake and Output Vital Signs (last 24 hours): Temp Pulse Resp BP Pulse Ox 97.9 F 67 20 133/91 H 97 09/22/17 08:00 09/22/17 09:00 09/22/17 08:00 09/22/17 09:00 09/22/17 08:00 - Medications Medications: Current Medications Apixaban (Eliquis) 5 mg PO BID [facility] PRN Reason: Protocol Last Admin: 09/21/17 17:26 Dose: 5 mg Aspirin (Aspirin Chewable) 81 mg PO DAILY [facility] Last Admin: 09/22/17 09:00 Dose: 81 mg Furosemide (Lasix) 40 mg IVP BID [facility] Last Admin: 09/22/17 09:00 Dose: 40 mg Metformin HCl (Glucophage) 1,000 mg PO BIDWM [facility] Last Admin: 09/22/17 09:06 Dose: Not Given Metoprolol Tartrate (Lopressor) 25 mg PO Q12 [facility] Last Admin: 09/22/17 09:00 Dose: 25 mg Potassium Chloride (K-Dur 20 Meq Er Tab) 20 meq PO BID [facility] Last Admin: 09/22/17 09:00 Dose: 20 meq Ramipril (Altace) 10 mg PO DAILY [facility] Last Admin: 09/21/17 09:37 Dose: 10 mg Sitagliptin Phosphate (Januvia) 100 mg PO DAILY [facility] Last Admin: 09/22/17 09:06 Dose: Not Given - Labs Labs: 09/20/17 13:48 09/22/17 05:25 - Constitutional Appears: Well - Head Exam Head Exam: ATRAUMATIC, NORMAL INSPECTION, NORMOCEPHALIC - Eye Exam Eye Exam: EOMI, Normal appearance, PERRL Pupil Exam: NORMAL ACCOMODATION, PERRL - ENT Exam ENT Exam: Mucous Membranes Moist, Normal Exam - Neck Exam Neck Exam: Full ROM, Normal Inspection. absent: Lymphadenopathy - Respiratory Exam Respiratory Exam: Clear to Ausculation Bilateral, Rales, NORMAL BREATHING PATTERN - Cardiovascular Exam Cardiovascular Exam: REGULAR RHYTHM, +S1, +S2, Murmur - GI/Abdominal Exam GI & Abdominal Exam: Soft, Normal Bowel Sounds. absent: Tenderness - Extremities Exam Extremities Exam: Full ROM, Normal Capillary Refill, Normal Inspection. absent : Joint Swelling, Pedal Edema - Back Exam Back Exam: NORMAL INSPECTION - Neurological Exam Neurological Exam: Alert, Awake, CN II-XII Intact, Normal Gait, Oriented x3 - Psychiatric Exam Psychiatric exam: Normal Affect, Normal Mood - Skin Skin Exam: Dry, Intact, Normal Color, Warm Assessment and Plan (1) CHF (congestive heart failure) Status: Acute (2) Hyperlipidemia associated with type 2 diabetes mellitus Status: Acute (3) Alcohol abuse with intoxication Status: Acute (4) Chest pain Status: Acute (5) Hypertension Status: Acute (6) NICM (nonischemic cardiomyopathy) Status: Acute (7) Paroxysmal A-fib Status: Acute
--- NOTE | 2017-09-23 06:36 | CP.PCM.HP ---
History of Present Illness - History of Present Illness History of Present Illness: This is a 57 y/o male admitted for progressive SOB, leg edema. Noted to have elevated proBNP. He was admitted to [facility] last February for SOB, orthopnea, leg edema and back then his EF was 20 %. He had a cardiac cath and was evaluated for life vest. He was placed on Carvedilol. he has poor compliance . He followed up only once in my office after hospitalization. He has a hx of HTN DM 2 hyperlipidemia and atrial fibrillation. He was maintained on Furosemide 20 mg OD, Carvedilol 6.25 bid, ramipril 5 mg OD , Januvia 100 OD and metformin 1000 BID. 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 Present on Admission - Present on Admission Any Indicators Present on Admission: No History of DVT/PE: No History of Uncontrolled Diabetes: Yes Urinary Catheter: No Decubitus Ulcer Present: No Review of Systems - Respiratory Respiratory: Cough, Dyspnea Past Patient History - Infectious Disease Hx of Infectious Diseases: None - Tetanus Immunizations Tetanus Immunization: Unknown - Past Medical History & Family History Past Medical History?: Yes - Past Social History Smoking Status: Current Some Days Smoker - CARDIAC Hx Cardiac Disorders: Yes Hx Congestive Heart Failure: Yes Hx Hypertension: Yes - PULMONARY Hx Respiratory Disorders: No - NEUROLOGICAL Hx Neurological Disorder: No - HEENT Hx HEENT Problems: No - RENAL Hx Kidney Stones: Yes - ENDOCRINE/METABOLIC Hx Endocrine Disorders: No - HEMATOLOGICAL/ONCOLOGICAL Hx Blood Disorders: No - INTEGUMENTARY Hx Dermatological Problems: No - MUSCULOSKELETAL/RHEUMATOLOGICAL Hx Musculoskeletal Disorders: No Hx Falls: No - GASTROINTESTINAL Hx Gastrointestinal Disorders: No - GENITOURINARY/GYNECOLOGICAL Hx Genitourinary Disorders: No - PSYCHIATRIC Hx Psychophysiologic Disorder: No Hx Substance Use: No - SURGICAL HISTORY Hx Surgeries: Yes Other/Comment: lithotripsy x3 - ANESTHESIA Hx Anesthesia: Yes Hx Anesthesia Reactions: No Meds Allergies/Adverse Reactions: Allergies Allergy/AdvReac Type Severity Reaction Status Date / Time No Known Allergies Allergy Verified 02/18/17 20:17 Physical Exam - Head Exam Head Exam: NORMAL INSPECTION - Eye Exam Eye Exam: Normal appearance - ENT Exam ENT Exam: Mucous Membranes Moist - Respiratory Exam Respiratory Exam: Decreased Breath Sounds, Rales - Cardiovascular Exam Cardiovascular Exam: Irregular Rhythm - GI/Abdominal Exam GI & Abdominal Exam: Normal Bowel Sounds - Neurological Exam Neurological exam: CN II-XII Intact, Oriented x3 - Psychiatric Exam Psychiatric exam: Normal Mood Results - Vital Signs Recent Vital Signs: Last Vital Signs Temp 97.5 F L 09/23/17 05:17 Pulse 66 09/23/17 05:17 Resp 18 09/23/17 05:17 BP 124/81 09/23/17 05:17 Pulse Ox 93 L 09/23/17 05:17 - Labs Result Diagrams: 09/20/17 13:48 09/22/17 05:25 Labs: Laboratory Results - last 24 hr 09/21/17 09/21/17 09/22/17 16:10 21:43 05:14 Sodium Potassium Chloride Carbon Dioxide Anion Gap BUN Creatinine Est GFR ( Amer) Est GFR (Non-Af Amer) POC Glucose (mg/dL) 107 112 H 102 Random Glucose Hemoglobin A1c Calcium Total Bilirubin AST ALT Alkaline Phosphatase NT-Pro-B Natriuret Pep Total Protein Albumin Globulin Albumin/Globulin Ratio Triglycerides Cholesterol LDL Cholesterol Direct HDL Cholesterol TSH 3rd Generation 09/22/17 09/22/17 09/22/17 05:25 05:25 11:23 Sodium 139 Potassium 4.0 Chloride 100 Carbon Dioxide 31 H Anion Gap 12 BUN 27 H Creatinine 1.0 Est GFR ( Amer) > 60 Est GFR (Non-Af Amer) > 60 POC Glucose (mg/dL) 153 H Random Glucose 103 Hemoglobin A1c 5.9 Calcium 10.3 H Total Bilirubin 0.9 AST 27 ALT 28 Alkaline Phosphatase 130 H NT-Pro-B Natriuret Pep 512 Total Protein 7.5 Albumin 4.0 Globulin 3.5 Albumin/Globulin Ratio 1.2 Triglycerides 167 H Cholesterol 251 H LDL Cholesterol Direct 162 H HDL Cholesterol 39 TSH 3rd Generation 2.68 09/22/17 09/22/17 09/23/17 16:41 21:08 05:02 Sodium Potassium Chloride Carbon Dioxide Anion Gap BUN Creatinine Est GFR ( Amer) Est GFR (Non-Af Amer) POC Glucose (mg/dL) 101 113 H 124 H Random Glucose Hemoglobin A1c Calcium Total Bilirubin AST ALT Alkaline Phosphatase NT-Pro-B Natriuret Pep Total Protein Albumin Globulin Albumin/Globulin Ratio Triglycerides Cholesterol LDL Cholesterol Direct HDL Cholesterol TSH 3rd Generation Assessment & Plan (1) CHF (congestive heart failure) Status: Acute (2) Diabetes mellitus type 2 in obese Status: Acute (3) Hypertension Status: Acute (4) NICM (nonischemic cardiomyopathy) Status: Acute (5) Paroxysmal A-fib Status: Acute (6) Hyperlipidemia associated with type 2 diabetes mellitus Status: Acute - Assessment and Plan (Free Text) Plan: low salt low fat diet restart amparo meds Lasix 40 iv bid cardiology eval fluid restriction check a1c lipid telemetry resume xarelto or eliquis
--- NOTE | 2017-09-23 06:48 | CP.PCM.PN ---
Subjective - Date & Time of Evaluation Date of Evaluation: 09/21/17 Time of Evaluation: 11:00 - Subjective Subjective: Patient feels a lot better Still with leg edema No chest pain. Objective - Vital Signs/Intake and Output Vital Signs (last 24 hours): Temp Pulse Resp BP Pulse Ox 97.5 F L 66 18 124/81 93 L 09/23/17 05:17 09/23/17 05:17 09/23/17 05:17 09/23/17 05:17 09/23/17 05:17 Intake and Output: 09/22/17 09/23/17 18:59 06:59 Intake Total 650 Output Total 1800 Balance -1150 - Medications Medications: Current Medications Aspirin (Aspirin Chewable) 81 mg PO DAILY [facility] Last Admin: 09/22/17 09:00 Dose: 81 mg Atorvastatin Calcium (Lipitor) 40 mg PO DAILY [facility] Furosemide (Lasix) 40 mg IVP BID [facility] Last Admin: 09/22/17 16:25 Dose: 40 mg Metformin HCl (Glucophage) 1,000 mg PO BIDWM [facility] Last Admin: 09/22/17 16:22 Dose: Not Given Metoprolol Tartrate (Lopressor) 25 mg PO Q12 [facility] Last Admin: 09/22/17 21:48 Dose: 25 mg Potassium Chloride (K-Dur 20 Meq Er Tab) 20 meq PO BID [facility] Last Admin: 09/22/17 16:25 Dose: 20 meq Ramipril (Altace) 10 mg PO DAILY [facility] Last Admin: 09/22/17 09:00 Dose: 10 mg Rivaroxaban (Xarelto) 20 mg PO DAILY [facility] PRN Reason: Protocol Sitagliptin Phosphate (Januvia) 100 mg PO DAILY [facility] Last Admin: 09/22/17 09:06 Dose: Not Given - Labs Labs: 09/20/17 13:48 09/22/17 05:25 - Head Exam Head Exam: NORMAL INSPECTION - Eye Exam Eye Exam: Normal appearance - ENT Exam ENT Exam: Mucous Membranes Moist - Respiratory Exam Respiratory Exam: Decreased Breath Sounds - Cardiovascular Exam Cardiovascular Exam: REGULAR RHYTHM - GI/Abdominal Exam GI & Abdominal Exam: Normal Bowel Sounds - Neurological Exam Neurological Exam: Awake, Oriented x3 Assessment and Plan (1) CHF (congestive heart failure) Status: Acute (2) Diabetes mellitus type 2 in obese Status: Acute (3) Hypertension Status: Acute (4) NICM (nonischemic cardiomyopathy) Status: Acute (5) Paroxysmal A-fib Status: Acute (6) Hyperlipidemia associated with type 2 diabetes mellitus Status: Acute - Assessment and Plan (Free Text) Plan: Cont meds Cont tx fluid restriction follow up with Cardiology check troponin
--- NOTE | 2017-09-23 06:51 | CP.PCM.PN ---
Subjective - Date & Time of Evaluation Date of Evaluation: 09/22/17 Time of Evaluation: 11:00 - Subjective Subjective: Noted elevated LDL A1c is 5.9 Has less SOB review of ECHO in Feb revealed EF 20 % Objective - Vital Signs/Intake and Output Vital Signs (last 24 hours): Temp Pulse Resp BP Pulse Ox 97.5 F L 66 18 124/81 93 L 09/23/17 05:17 09/23/17 05:17 09/23/17 05:17 09/23/17 05:17 09/23/17 05:17 Intake and Output: 09/22/17 09/23/17 18:59 06:59 Intake Total 650 Output Total 1800 Balance -1150 - Medications Medications: Current Medications Aspirin (Aspirin Chewable) 81 mg PO DAILY [facility] Last Admin: 09/22/17 09:00 Dose: 81 mg Atorvastatin Calcium (Lipitor) 40 mg PO DAILY [facility] Furosemide (Lasix) 40 mg IVP BID [facility] Last Admin: 09/22/17 16:25 Dose: 40 mg Metformin HCl (Glucophage) 1,000 mg PO BIDWM [facility] Last Admin: 09/22/17 16:22 Dose: Not Given Metoprolol Tartrate (Lopressor) 25 mg PO Q12 [facility] Last Admin: 09/22/17 21:48 Dose: 25 mg Potassium Chloride (K-Dur 20 Meq Er Tab) 20 meq PO BID [facility] Last Admin: 09/22/17 16:25 Dose: 20 meq Ramipril (Altace) 10 mg PO DAILY [facility] Last Admin: 09/22/17 09:00 Dose: 10 mg Rivaroxaban (Xarelto) 20 mg PO DAILY [facility] PRN Reason: Protocol Sitagliptin Phosphate (Januvia) 100 mg PO DAILY [facility] Last Admin: 09/22/17 09:06 Dose: Not Given - Labs Labs: 09/20/17 13:48 09/22/17 05:25 - Head Exam Head Exam: NORMAL INSPECTION - Eye Exam Eye Exam: Normal appearance - ENT Exam ENT Exam: Mucous Membranes Moist - Respiratory Exam Respiratory Exam: Decreased Breath Sounds - GI/Abdominal Exam GI & Abdominal Exam: Normal Bowel Sounds - Neurological Exam Neurological Exam: Awake, Oriented x3 Assessment and Plan (1) CHF (congestive heart failure) Status: Acute (2) Diabetes mellitus type 2 in obese Status: Acute (3) Hypertension Status: Acute (4) NICM (nonischemic cardiomyopathy) Status: Acute (5) Paroxysmal A-fib Status: Acute (6) Hyperlipidemia associated with type 2 diabetes mellitus Status: Acute - Assessment and Plan (Free Text) Plan: Cont same regimen add atorvastatin cont meds fluid restriction follow up with cardiology
[2017-09-23] MEDS: Potassium Chloride 20 mEq ER Tab PO SCH ×2 (11:25→16:51)
--- NOTE | 2017-09-23 12:01 | CARD ---
APPROVED REPORT Date of service: 09/23/2017 EKG Measurement Heart [id number] <Conclusion> Normal sinus rhythm Biatrial enlargement Prolonged QT NSTT wave abnormality Abnormal ECG
[2017-09-23] MEDS ORDERED: Sodium Chloride 0.9% 500 ML IV SCH (13:15)
--- NOTE | 2017-09-23 15:50 | CARD ---
APPROVED REPORT Date of service: 09/23/2017 EKG Measurement Heart [id number] <Conclusion> Normal sinus rhythm Biatrial enlargement Nonspecific intraventricular conduction delay Prolonged QT Abnormal ECG
[2017-09-23] MEDS: Lidocaine 5% Patch TD SCH (17:11)
--- NOTE | 2017-09-23 17:37 | CP.PCM.PN ---
Subjective - Date & Time of Evaluation Date of Evaluation: 09/23/17 Time of Evaluation: 17:00 - Subjective Subjective: s/p stress test sob improving Objective - Vital Signs/Intake and Output Vital Signs (last 24 hours): Temp Pulse Resp BP Pulse Ox 97.9 F 60 16 105/70 94 L 09/23/17 16:01 09/23/17 16:01 09/23/17 16:01 09/23/17 16:01 09/23/17 16:01 - Medications Medications: Current Medications Aspirin (Aspirin Chewable) 81 mg PO DAILY [facility] Last Admin: 09/23/17 11:27 Dose: 81 mg Atorvastatin Calcium (Lipitor) 40 mg PO HS [facility] Furosemide (Lasix) 40 mg IVP BID [facility] Last Admin: 09/23/17 11:29 Dose: Not Given Sodium Chloride (Sodium Chloride 0.9%) 500 mls @ 80 mls/hr IV .Q6H15M [facility] Stop: 09/23/17 19:29 Last Admin: 09/23/17 13:15 Dose: 80 mls/hr Lidocaine (Lidoderm) 1 ea TD DAILY [facility] Last Admin: 09/23/17 17:11 Dose: 1 ea Metoprolol Tartrate (Lopressor) 25 mg PO Q12 [facility] Last Admin: 09/23/17 11:25 Dose: 25 mg Potassium Chloride (K-Dur 20 Meq Er Tab) 20 meq PO BID [facility] Last Admin: 09/23/17 16:51 Dose: Not Given Ramipril (Altace) 5 mg PO DAILY [facility] Rivaroxaban (Xarelto) 20 mg PO DAILY@1700 NAT[facility] PRN Reason: Protocol Sitagliptin Phosphate (Januvia) 100 mg PO DAILY [facility] Last Admin: 09/23/17 11:28 Dose: Not Given Tramadol HCl (Ultram) 50 mg PO Q8 PRN PRN Reason: Pain, moderate (4-7) - Labs Labs: 09/20/17 13:48 09/22/17 05:25 - Constitutional Appears: Well - Head Exam Head Exam: ATRAUMATIC, NORMAL INSPECTION, NORMOCEPHALIC - Eye Exam Eye Exam: EOMI, Normal appearance, PERRL Pupil Exam: NORMAL ACCOMODATION, PERRL - ENT Exam ENT Exam: Mucous Membranes Moist, Normal Exam - Neck Exam Neck Exam: Full ROM, Normal Inspection. absent: Lymphadenopathy - Respiratory Exam Respiratory Exam: Clear to Ausculation Bilateral, NORMAL BREATHING PATTERN - Cardiovascular Exam Cardiovascular Exam: REGULAR RHYTHM, +S1, +S2, Murmur - GI/Abdominal Exam GI & Abdominal Exam: Soft, Normal Bowel Sounds. absent: Tenderness - Extremities Exam Extremities Exam: Full ROM, Normal Capillary Refill, Normal Inspection. absent : Joint Swelling, Pedal Edema - Back Exam Back Exam: NORMAL INSPECTION - Neurological Exam Neurological Exam: Alert, Awake, CN II-XII Intact, Oriented x3 - Psychiatric Exam Psychiatric exam: Normal Affect, Normal Mood - Skin Skin Exam: Dry, Intact, Normal Color, Warm Assessment and Plan (1) CHF (congestive heart failure) Status: Acute (2) Hyperlipidemia associated with type 2 diabetes mellitus Status: Acute (3) Alcohol abuse with intoxication Status: Acute (4) Chest pain Status: Acute (5) Hypertension Status: Acute (6) NICM (nonischemic cardiomyopathy) Status: Acute (7) Paroxysmal A-fib Status: Acute
--- NOTE | 2017-09-23 18:48 | CARD ---
APPROVED REPORT Date of service: 09/22/2017 Protocol: NELLY Test Type: Stress Nuclear Medications: METFORMIN 1000MG, POTASSIUM 20MEQ ASA 81MG, ATORVASTATIN 40MG, LASIC 40MG, ALTACE 10MG, XARELTO 20MG, SITAGLIPTIN 100MG, Medical History: HYPERTENSION, HYPERLIPIDEMIA, ATRIAL FIBRILATION, KIDNEY STONES, CONGESTIVE HEART FAILURE, Target HR: 163 bpm Resting ECG: right bundle branch block Resting Heart Rate: 77 bpm Resting Blood Pressure: 100/60mmHg submaximum (85%): 139 bpm TEST SUMMARY [id number]. [id number]. [id number]. [id number]/60.0. MANUALSTAGE [id number]. [id number]/80.0. POST EXERCISE Reason for Termination: Fatigue Target HR: No Max HR: 108 bpm 66% of Maximum Predicted HR: 163 bpm Exercise duration: 06:00 min:sec, 0 Stage Exercise capacity: 5.1METs Max Blood Pressure: 132/80mmHg Blood Pressure response to exercise: normal resting BP - appropriate response Heart Rate response to exercise: appropriate Chest Pain: No, none Angina index: 0 Arrhythmia: No, none ST Change: Yes, Depression downsloping Deviation: 0 mm EXAM: Myocardial Perfusion REST/STRESS Image QualityGood Imaging Protocol The imaging protocol used to acquire images was Rest Tc-99m/stress Tc-99m 1 day Rest Spect myocardial perfusion imaging was performed in supine position 45 minutes following the injection of 10 mCi of Tc-99 Myoview. Time of rest injection: 8:03 Time of rest imagin:45 At peak stress, the patient was injected intravenously with 30mCi of Tc-99 tetrofosmin after an infusion time of minutes and seconds. Time of stress injection: 10:38 Time of stress imagin:32 Gated Stress Spect was performed 54 minutes after intravenous Tc-99 Myoview injection. The images were gated to evaluate regional wall motion and calculate ventricular ejection fraction. NUCLEAR IMAGE INTERPRETATION LV Perfusion No major perfussion defect noticed. The inferior wall shows a minor perfussion defect both at rest and post exercises. LV Perfusion 1 Perfusion Defect Location: basal inferior Perfusion Defect Size: Small (1-2 segments) Perfusion Defect Severity: Mild Type of Perfusion Defect: Persistent Wall Motion Severe global hyopkinesia and Cardiomegally with major reduction of the left ventricuilar ejection fraction CONCLUSION 1. 1- Abnormal nuclear study due to severe reduction of the LVEF 20% with Cardiomegally 2. 2- Mostly normal perfussion study with minor take up defect on the inferior wall both at rest and at exercises 3. 3- Severe reduction of the exercise tolerance more than 40% Recommendation Close medical treatment and follow up.
[2017-09-24 05:32] LABS: HEMOGLOBIN 18.1 g/dL (12.0-18.0); MEAN CELL VOLUME 98.2 fl (80.0-94.0); MEAN CORPUSCULAR HEMOGLOBIN 34.3 pg (27.0-31.0); MEAN CORPUSCULAR HGB CONC 34.9 g/dL (33.0-37.0); RBC 5.27 Mil/uL (4.40-5.90); RED CELL DISTRIBUTION WIDTH 13.4 % (11.5-14.5); WHITE BLOOD COUNT 7.5 K/uL (4.8-10.8)
[2017-09-24 05:49] LABS: BLOOD UREA NITROGEN 46 mg/dl (9-20); CALCIUM 9.8 mg/dL (8.4-10.2); GFR AFRICAN-AMERICAN > 60; GFR NON-AFRICAN AMERICAN 57
--- NOTE | 2017-09-24 07:54 | CP.PCM.PN ---
Subjective - Date & Time of Evaluation Date of Evaluation: 09/23/17 Time of Evaluation: 10:30 - Subjective Subjective: Patient remains stable Has no SOB Has no cough Labs are better. All troponins are normal. Objective - Vital Signs/Intake and Output Vital Signs (last 24 hours): Temp Pulse Resp BP Pulse Ox 98.0 F 58 L 18 110/73 96 09/24/17 04:52 09/24/17 04:52 09/24/17 04:52 09/24/17 04:52 09/24/17 04:52 - Medications Medications: Current Medications Aspirin (Aspirin Chewable) 81 mg PO DAILY [facility] Last Admin: 09/23/17 11:27 Dose: 81 mg Atorvastatin Calcium (Lipitor) 40 mg PO HS [facility] Last Admin: 09/23/17 21:44 Dose: 40 mg Furosemide (Lasix) 40 mg IVP BID [facility] Last Admin: 09/23/17 11:29 Dose: Not Given Lidocaine (Lidoderm) 1 ea TD DAILY [facility] Last Admin: 09/23/17 17:11 Dose: 1 ea Metoprolol Tartrate (Lopressor) 25 mg PO Q12 [facility] Last Admin: 09/23/17 21:26 Dose: Not Given Potassium Chloride (K-Dur 20 Meq Er Tab) 20 meq PO BID [facility] Last Admin: 09/23/17 16:51 Dose: Not Given Ramipril (Altace) 5 mg PO DAILY [facility] Rivaroxaban (Xarelto) 20 mg PO DAILY@1700 NATALYA PRN Reason: Protocol Last Admin: 09/23/17 18:24 Dose: 20 mg Sitagliptin Phosphate (Januvia) 100 mg PO DAILY [facility] Last Admin: 09/23/17 11:28 Dose: Not Given Tramadol HCl (Ultram) 50 mg PO Q8 PRN PRN Reason: Pain, moderate (4-7) Last Admin: 09/23/17 18:24 Dose: 50 mg - Labs Labs: 09/24/17 04:20 09/24/17 04:20 - Head Exam Head Exam: NORMAL INSPECTION - Eye Exam Eye Exam: Normal appearance - Respiratory Exam Respiratory Exam: Clear to Ausculation Bilateral - Cardiovascular Exam Cardiovascular Exam: REGULAR RHYTHM - GI/Abdominal Exam GI & Abdominal Exam: Normal Bowel Sounds Assessment and Plan (1) CHF (congestive heart failure) Status: Acute (2) Diabetes mellitus type 2 in obese Status: Acute (3) Hypertension Status: Acute (4) NICM (nonischemic cardiomyopathy) Status: Acute (5) Paroxysmal A-fib Status: Acute (6) Hyperlipidemia associated with type 2 diabetes mellitus Status: Acute - Assessment and Plan (Free Text) Plan: Cont meds Cont tx Cont diuretic BP control discussed with Dr Cervantes
[2017-09-24] MEDS: Potassium Chloride 20 mEq ER Tab PO SCH ×2 (08:35→16:44)
[2017-09-24] MEDS: Lidocaine 5% Patch TD SCH (08:37)
[2017-09-24 12:47] VITALS: RESP 20
--- NOTE | 2017-09-24 15:17 | CP.PCM.PN ---
Subjective - Date & Time of Evaluation Date of Evaluation: 09/24/17 Time of Evaluation: 15:14 - Subjective Subjective: s/p stress test - EF 20% no perfusion abnormality feeling better Objective - Vital Signs/Intake and Output Vital Signs (last 24 hours): Temp Pulse Resp BP Pulse Ox 97.5 F L 71 20 100/66 96 09/24/17 12:00 09/24/17 12:00 09/24/17 12:00 09/24/17 12:00 09/24/17 12:00 - Medications Medications: Current Medications Aspirin (Aspirin Chewable) 81 mg PO DAILY [facility] Last Admin: 09/24/17 08:36 Dose: 81 mg Atorvastatin Calcium (Lipitor) 40 mg PO HS [facility] Last Admin: 09/23/17 21:44 Dose: 40 mg Carvedilol (Coreg) 6.25 mg PO Q12 [facility] Furosemide (Lasix) 40 mg IVP BID [facility] Last Admin: 09/23/17 11:29 Dose: Not Given Lidocaine (Lidoderm) 1 ea TD DAILY [facility] Last Admin: 09/24/17 08:37 Dose: 1 ea Potassium Chloride (K-Dur 20 Meq Er Tab) 20 meq PO BID [facility] Last Admin: 09/24/17 08:35 Dose: 20 meq Ramipril (Altace) 5 mg PO DAILY [facility] Last Admin: 09/24/17 08:36 Dose: 5 mg Rivaroxaban (Xarelto) 20 mg PO DAILY@1700 NATAL[facility] PRN Reason: Protocol Last Admin: 09/23/17 18:24 Dose: 20 mg Sitagliptin Phosphate (Januvia) 100 mg PO DAILY [facility] Last Admin: 09/24/17 08:36 Dose: 100 mg Tramadol HCl (Ultram) 50 mg PO Q8 PRN PRN Reason: Pain, moderate (4-7) Last Admin: 09/23/17 18:24 Dose: 50 mg - Labs Labs: 09/24/17 04:20 09/24/17 04:20 - Constitutional Appears: Well - Head Exam Head Exam: ATRAUMATIC, NORMAL INSPECTION, NORMOCEPHALIC - Eye Exam Eye Exam: EOMI, Normal appearance, PERRL Pupil Exam: NORMAL ACCOMODATION, PERRL - ENT Exam ENT Exam: Mucous Membranes Moist, Normal Exam - Neck Exam Neck Exam: Full ROM, Normal Inspection. absent: Lymphadenopathy - Respiratory Exam Respiratory Exam: Clear to Ausculation Bilateral, NORMAL BREATHING PATTERN - Cardiovascular Exam Cardiovascular Exam: REGULAR RHYTHM, +S1, +S2, Murmur - GI/Abdominal Exam GI & Abdominal Exam: Soft, Normal Bowel Sounds. absent: Tenderness - Extremities Exam Extremities Exam: Full ROM, Normal Capillary Refill, Normal Inspection. absent : Joint Swelling, Pedal Edema - Back Exam Back Exam: NORMAL INSPECTION - Neurological Exam Neurological Exam: Alert, Awake, CN II-XII Intact, Oriented x3 - Psychiatric Exam Psychiatric exam: Normal Affect, Normal Mood - Skin Skin Exam: Dry, Intact, Normal Color, Warm Assessment and Plan (1) CHF (congestive heart failure) Assessment & Plan: Non-ischemic CMP EF 20% cath in feb - non-obstructive compensated cont bb, acei chg lasix to po AICD evaluation in 3 months stable to dc home Status: Acute (2) Paroxysmal A-fib Assessment & Plan: cont xarelto cont coreg 6.25mg bid Status: Acute (3) Hyperlipidemia associated with type 2 diabetes mellitus Assessment & Plan: cont statins Status: Acute (4) Alcohol abuse with intoxication Status: Acute (5) Hypertension Status: Acute (6) NICM (nonischemic cardiomyopathy) Assessment & Plan: cont coreg and ramipril AICD in 3 months Status: Acute
[2017-09-24 15:44] VITALS: BP 101/61; PULSE 61; TEMP 97.8; O2SAT 94
--- NOTE | 2017-09-24 15:52 | CP.PCM.DIS ---
Provider - Provider Date of Admission: 09/21/17 14:34 Attending physician: Leonel Carranza MD Consults: Cardiology Time Spent in preparation of Discharge (in minutes): 30 Diagnosis - Discharge Diagnosis (1) CHF (congestive heart failure) Status: Acute (2) Hyperlipidemia associated with type 2 diabetes mellitus Status: Chronic (3) High blood pressure Status: Chronic Hospital Course - Lab Results Lab Results: Most Recent Lab Values WBC 7.5 K/uL (4.8-10.8) 09/24/17 04:20 RBC 5.27 Mil/uL (4.40-5.90) 09/24/17 04:20 Hgb 18.1 g/dL (12.0-18.0) H 09/24/17 04:20 Hct 51.8 % (35.0-51.0) H 09/24/17 04:20 MCV 98.2 fl (80.0-94.0) H 09/24/17 04:20 MCH 34.3 pg (27.0-31.0) H 09/24/17 04:20 MCHC 34.9 g/dL (33.0-37.0) 09/24/17 04:20 RDW 13.4 % (11.5-14.5) 09/24/17 04:20 Plt Count 223 K/uL (130-400) 09/24/17 04:20 MPV 8.2 fl (7.2-11.7) 09/20/17 13:48 Neut % (Auto) 67.2 % (50.0-75.0) 09/20/17 13:48 Lymph % (Auto) 23.4 % (20.0-40.0) 09/20/17 13:48 Schleicher % (Auto) 6.7 % (0.0-10.0) 09/20/17 13:48 Eos % (Auto) 1.9 % (0.0-4.0) 09/20/17 13:48 Baso % (Auto) 0.8 % (0.0-2.0) 09/20/17 13:48 Neut # (Auto) 4.6 K/uL (1.8-7.0) 09/20/17 13:48 Lymph # (Auto) 1.6 K/uL (1.0-4.3) 09/20/17 13:48 Schleicher # (Auto) 0.5 K/uL (0.0-0.8) 09/20/17 13:48 Eos # (Auto) 0.1 K/uL (0.0-0.7) 09/20/17 13:48 Baso # (Auto) 0.1 K/uL (0.0-0.2) 09/20/17 13:48 Sodium 138 mmol/l (132-148) 09/24/17 04:20 Potassium 4.1 MMOL/L (3.6-5.0) 09/24/17 04:20 Chloride 102 mmol/L (98-107) 09/24/17 04:20 Carbon Dioxide 25 mmol/L (22-30) 09/24/17 04:20 Anion Gap 15 (10-20) 09/24/17 04:20 BUN 46 mg/dl (9-20) H 09/24/17 04:20 Creatinine 1.3 mg/dl (0.8-1.5) 09/24/17 04:20 Est GFR ( Amer) > 60 09/24/17 04:20 Est GFR (Non-Af Amer) 57 09/24/17 04:20 POC Glucose (mg/dL) 136 mg/dL (65-110) H 09/24/17 11:31 Random Glucose 110 mg/dL (75-110) 09/24/17 04:20 Hemoglobin A1c 5.9 % (4.2-6.5) 09/22/17 05:25 Calcium 9.8 mg/dL (8.4-10.2) 09/24/17 04:20 Total Bilirubin 0.9 mg/dl (0.2-1.3) 09/22/17 05:25 AST 27 U/L (17-59) 09/22/17 05:25 ALT 28 U/L (21-72) 09/22/17 05:25 Alkaline Phosphatase 130 U/L (38-126) H 09/22/17 05:25 Troponin I 0.0490 ng/mL (0.00-0.120) 09/23/17 22:16 NT-Pro-B Natriuret Pep 512 pg/ml (0-900) 09/22/17 05:25 Total Protein 7.5 G/DL (6.3-8.2) 09/22/17 05:25 Albumin 4.0 g/dL (3.5-5.0) 09/22/17 05:25 Globulin 3.5 gm/dL (2.2-3.9) 09/22/17 05:25 Albumin/Globulin Ratio 1.2 (1.0-2.1) 09/22/17 05:25 Triglycerides 167 mg/DL (0-149) H 09/22/17 05:25 Cholesterol 251 mg/dL (0-199) H 09/22/17 05:25 LDL Cholesterol Direct 162 mg/dL (0-129) H 09/22/17 05:25 HDL Cholesterol 39 MG/DL (30-70) 09/22/17 05:25 TSH 3rd Generation 2.68 mIU/ML (0.46-4.68) 09/22/17 05:25 - Hospital Course Hospital Course: 57 yo M with DM2, HTN, CHF, admitted for progressive SOB, edema, CHF exacerbation. Pt has hx of poor compliance, states he does not know he had CHF or DM2, but at last admission he had cardiac cath, was placed on Furosemide 20 mg OD, Carvedilol 6.25 bid, ramipril 5 mg OD, Januvia 100 OD and metformin 1000 BID, and only followed up one time in office. Cardiology was consulte (Dr. Cervantes); he was found to have elevated BNP on this admission, was diuresed with lasix and underwent stress test which showed abnormal nuclear study due to reduced EF 20%, mostly normal perfusion with minor takeup defect on inferior wall both at rest and during exercise, severe reduction of exercise tolerance, more than 40%. Pt's symptoms resolved and he feels much better; is stable for d/c as per Dr. Cervantes. Discussed with pt at length importance of follow up and adherence to medications. He has follow up appts with Dr. Cervantes and Dr. Carranza. Pt verbalized understanding and agreement with plan. Of note, home lasix dose changed to 40mg BID as per final touch up painter. Discharge Exam - Head Exam Head Exam: ATRAUMATIC, NORMAL INSPECTION, NORMOCEPHALIC - Eye Exam Eye Exam: Normal appearance - Respiratory Exam Respiratory Exam: NORMAL BREATHING PATTERN - Cardiovascular Exam Cardiovascular Exam: REGULAR RHYTHM - Extremities Exam Extremities exam: normal inspection - Neurological Exam Neurological exam: Alert, Oriented x3 - Psychiatric Exam Psychiatric exam: Normal Mood - Skin Skin Exam: Normal Color, Warm Discharge Plan - Discharge Medications Prescriptions: Aspirin [Aspirin Chewable] 81 mg PO DAILY #30 chew Atorvastatin [Lipitor] 40 mg PO HS #30 tab Carvedilol [Coreg] 6.25 mg PO Q12 #60 tab Furosemide [Lasix] 20 mg PO DAILY #30 tab Lidocaine 5% [Lidoderm] 1 ea TD DAILY #30 patch MetFORMIN [glucoPHAGE] 1,000 mg PO BIDWM #60 tab Ramipril [Altace] 5 mg PO DAILY #30 cap Rivaroxaban [Xarelto] 20 mg PO DAILY@1700 #30 tab SITagliptin [Januvia] 100 mg PO DAILY #30 tab - Follow Up Plan Condition: FAIR Disposition: HOME/ ROUTINE Instructions: Heart Failure, Adult (DC), Diabetes Type 2 (DC), High Cholesterol (DC) Additional Instructions: follow up appt with on friday09/30/17 at 2:30pm follow up appt with in friday10/01/17 at 11:00 am Referrals: Justin Cervantes MD [Staff Provider] - Leonel Carranza MD [Staff Provider] -
== END 2017-09-24 18:15 | disposition home or self-care (01) | DRG 127 ==
LOC: H.ER 13:05 → H.ERHOLD 14:54 → H.TEL 20:47 → OBSVTOIN 09-21 14:34
PROVIDERS: ADMIT Family Medicine; ATTEND Family Medicine
DX: I11.0 Hypertensive heart disease with heart failure (principal); I42.8 Other cardiomyopathies; E11.69 Type 2 diabetes mellitus with other specified complication; I50.9 Heart failure, unspecified; I48.0 Paroxysmal atrial fibrillation; F10.129 Alcohol abuse with intoxication, unspecified; E66.9 Obesity, unspecified; E78.5 Hyperlipidemia, unspecified; Z68.30 Body mass index [BMI] 30.0-30.9, adult; F17.210 Nicotine dependence, cigarettes, uncomplicated; Z79.01 Long term (current) use of anticoagulants; Z79.84 Long term (current) use of oral hypoglycemic drugs; Z87.442 Personal history of urinary calculi